=== PATIENT | male | born 1960 | race Caucasian/White ===

== ENCOUNTER 2019-12-15 17:24 | Inpatient (IN) ==
[~2019-12-15] VITALS: Ht 180.3 cm; Wt 107.1 kg
[2019-12-15 17:40] VITALS: BP 157/77
--- NOTE | 2019-12-15 17:55 | ER.PDOC ---
General Chief Complaint: Requesting Medical Care Stated Complaint: RIGHT FOOT INJURY Time seen by MD: 17:48 Source: patient Exam Limitations: no limitations History of Present Illness Initial Comments Patient states he stepped on a nail 2 days ago and didn't know it was there until last night (he has diabetic neuropathy) when he found it in his shoe. Today the right great toe is black and painless with erythema/warmth spreading up foot to lower leg. Onset: other (2 days) Where: home Severity: severe Context: other (stepped on nail 2 days ago) Modifying Factors: nothing Allergies: Coded Allergies: No Known Allergies (Unverified , 12/15/19) Home Meds Reported Medications Metformin Hcl (METFORMIN HCL) 1,000 Mg Tablet, 1 TAB PO BID, #60 TAB 5 Refills 12/15/19 Past Medical History Medical History: diabetes (no medication x 2 weeks d/t financial constraints) Surgical History: other (ortho left foot) Family History Significant Family History: no pertinent family hx Social History Smoking: cigarettes Alcohol Use: none Drug Use: none Review of Systems Constitutional: no symptoms reported EENTM: no symptoms reported Respiratory: no symptoms reported Cardiovascular: no symptoms reported Gastrointestinal: no symptoms reported Genitourinary: no symptoms reported Musculoskeletal: see HPI Skin: see HPI Psychiatric/Neurological: no symptoms reported All Other Systems: Reviewed and Negative Physical Exam General Appearance: Alert, No Apparent Distress Foot: see diagram, ecchymosis (right great toe) 1 - toe is black with necrotic lesion on base of toe and bullae on dorsal surface Ankle: nml inspection, non-tender Gait: limited by pain, antalgic gait Neuro: motor nml, decreased fine touch Vascular: skin cool (right great toe) Leg/Knee/Thigh: uninjured above ankle Skin: warm/dry (with erythema to right foot), cyanotic (right great toe) Head/ENT: nml inspection, pharynx nml Neck/Back: nml inspection, non-tender Resp/CVS: no resp distress, lungs clear, heart sounds nml, reg. rate & rhythm Abdomen: non-tender, no organomegaly Results/Orders Results/Orders Orders - LORENZA LOPEZ DO Cbc With Auto Diff (12/15/19 18:00) Comprehensive Metabolic Panel (12/15/19 18:00) Ct Rt Lower Extremity Wo (12/15/19 18:00) Ceftriaxone Sodium (Rocephin) (12/15/19 18:00) 0.9 % Sodium Chloride (Ns 100ml) (12/15/19 18:08) Ceftriaxone Sodium (Rocephin) (12/15/19 18:08) Clindamycin Phosphate/D5w (Cleocin 600 M (12/15/19 22:00) Penicillin G Potassium (Penicillin) (12/16/19 00:00) Vital Signs Date Time Temp Pulse Resp B/P (MAP) Pulse Ox O2 Delivery O2 Flow Rate FiO2 12/15/19 18:48 98.6 85 18 167/83 (111) 95 Room Air 12/15/19 17:57 98.6 86 18 157/77 (103) 99 Room Air 12/15/19 17:40 98.6 87 18 99 12/15/19 17:40 98.6 86 18 Administered Medications Medications (Trade) Dose Ordered Sig/Kandy Route PRN Reason Start Time Stop Time Status Last Admin Dose Admin Ceftriaxone Sodium 1000 mg/ Sodium Chloride 100 ml @ 100 mls/hr STAT STAT IV 12/15/19 18:00 12/15/19 18:59 UNV 12/15/19 18:41 100 MLS/HR Laboratory Tests Test 12/15/19 18:11 White Blood Count 14.6 10^3/uL (4.5-11.0) H Red Blood Count 5.31 10^6/uL (4.50-5.90) Hemoglobin 15.5 g/dL (13.9-16.3) Hematocrit 44.2 % (37.0-53.0) Mean Corpuscular Volume 83.2 fL (78-100) Mean Corpuscular Hemoglobin 29.2 pg (26-34) Mean Corpuscular Hemoglobin Concent 35.1 g/dL (33-36.5) Red Cell Distribution Width 13.0 % (11.5-14.5) Platelet Count 260 10^3/uL (150-400) Mean Platelet Volume 9.5 fL (7.8-11.0) Neutrophils (%) (Auto) 80.7 % (41.0-85.0) Lymphocytes (%) (Auto) 10.9 % (24.0-44.0) L Monocytes (%) (Auto) 6.4 % (5.0-12.0) Neutrophils # (Auto) 11.8 10^3/uL (1.8-7.7) H Lymphocytes # (Auto) 1.60 10^3/uL1 (1.0-4.8) Monocytes # (Auto) 0.9 10^3/uL (0.3-0.8) H Absolute Immature Granulocyte (auto 0.23 10^3 u/L (0-2) Absolute Eosinophils (auto) 0.1 10^3/uL (0.0-0.2) Immature Granulocytes % 1.60 % (0.00-0.50) H Eosinophils % 0.3 % (0.0-5.0) Basophils % 0.1 % (0.0-0.2) Basophils # 0.0 10^3/uL (0.0-0.1) Sodium Level 136 mmol/L (132-145) Potassium Level 4.1 mmol/L (3.6-5.2) Chloride Level 101.0 mmol/L (96-109) Carbon Dioxide Level 26.8 mmol/L (20.0-32) Anion Gap 12.3 Blood Urea Nitrogen 18 mg/dL (7-18) Creatinine 0.90 mg/dL (0.59-1.40) Estimated GFR () 104.2 (>/=60) Est GFR (CKD-EPI)(Non-Afr Citizen Of [place]) 86.1 (>/=60) BUN/Creatinine Ratio 20.0 Glucose Level 332 mg/dL (70-110) H Calcium Level 9.1 mg/dL (8.4-10.5) Total Bilirubin 0.5 mg/dL (0.2-1.0) Aspartate Amino Transferase (AST) 13 U/L (0-35) Alanine Aminotransferase (ALT) 21 U/L (12-78) Alkaline Phosphatase 91 U/L (50-136) Total Protein 6.9 g/dL (6.4-8.2) Albumin 2.8 g/dL (3.4-5.0) L Globulin 4.1 Albumin/Globulin Ratio 0.682 Progress Progress rocephin administered on arrival; clinda + pen G ordered when CT report showed gas gangreen EKG/XRAY/CT/US CT Comments: gas gangreen R grt toe with osteo/septic arthritis Consult/PCP Time Consult/PCP Called: 19:17 Consult/PCP: Dr. Curry Reason/Comments: will admit ER DEPART Departure Time of Disposition: 19:18 Disposition: 09 ADMITTED INPATIENT Impression: Primary Impression: Gas gangrene of foot Condition: Stable Referrals: JI WALKER (PCP) PRIMARY CARE PROVIDER Duration or Time Spent with Pa: 30 min LORENZA LOPEZ DO Dec 15, 2019 17:55
[2019-12-15 17:57] VITALS: BP 157/77
[2019-12-15] MEDS ORDERED: ROCEPHIN 1,000 MG in NS 100ML 100 ML IV STA (18:00)
[2019-12-15] MEDS ORDERED: ROCEPHIN ONE (18:08)
[2019-12-15] MEDS ORDERED: NS 100ML 100 ML IV ONE (18:08)
[2019-12-15 18:17] LABS: BASOPHIL % 0.1 % (0.0-0.2); EOSINOPHIL # 0.1 10^3/uL (0.0-0.2); EOSINOPHIL % 0.3 % (0.0-5.0); LYMPHOCYTES % 10.9 % (24.0-44.0); MEAN CORP HGB 29.2 pg (26-34); MONOCYTES # 0.9 10^3/uL (0.3-0.8); MONOCYTES % 6.4 % (5.0-12.0); NEUTROPHIL # 11.8 10^3/uL (1.8-7.7); NEUTROPHILS % 80.7 % (41.0-85.0); PLATELET COUNT 260 10^3/uL (150-400)
[2019-12-15 18:34] LABS: CALCIUM 9.1 mg/dL (8.4-10.5); CARBON DIOXIDE 26.8 mmol/L (20.0-32)
[2019-12-15 18:48] VITALS: BP 167/83
--- NOTE | 2019-12-15 18:51 | DIREP ---
PROCEDURE:CT LOWER EXTREMITY-RT W/O COMPARISON:None. INDICATIONS:osteomyelitis R great toe vs gangreen TECHNIQUE:Axial sections through the right foot and ankle were performed with sagittal and coronal reconstructions from source images. No contrast was administered. FINDINGS: BONES:Osseous erosive changes of the base of the 1st proximal phalanx compatible with acute osteomyelitis.. JOINTS:Background osteoarthritis of the metatarsophalangeal, interphalangeal, midfoot, and tibiotalar joints. Degenerative changes most pronounced about the talonavicular interval, calcaneal cuboid joint, and the 1st metatarsophalangeal joint. SOFT TISSUES:Significant soft tissue swelling and subcutaneous emphysema surrounding the 1st interphalangeal joint. OTHER:Negative. CONCLUSION:Findings suggestive of septic arthritis and osteomyelitis of the 1st interphalangeal joint and base of the 1st proximal phalanx respectively. Surrounding soft tissue gas compatible with gas gangrene. Dictated by: Matthieu Hinkle DO on 12/15/2019 at 06:48 PM
[2019-12-15] MEDS ORDERED: METF10007 PO (18:53)
[2019-12-15 19:30] VITALS: BP 157/81
--- NOTE | 2019-12-15 19:33 | NUR ---
REPORT TO [facility] REPORT TO CHEY SMITH
[2019-12-15 19:40] VITALS: BP 169/87
--- NOTE | 2019-12-15 19:40 | NUR ---
Received pt from the ED via wheel chair. Vital signs stable. Admission completed. Administered medications as ordered. Pt's left great to black and swollen,left foot is reddened with edema. Reddened perimeter marked to monitor redness. Pt denies any pain or discomforts at this time.Will cont to monitor and meet pt's needs.
[2019-12-15] MEDS ORDERED: CLEOCIN 600 MG-D5W-GALAXY 50 ML IV SCH (22:00)
[2019-12-15] MEDS ORDERED: NS 250ML 250 ML IV ONE (22:37)
[2019-12-16] VITALS: BP 151/78
[2019-12-16] MEDS ORDERED: PENICILLIN IV SCH ×2 (01:30)
[2019-12-16] MEDS ORDERED: CLEOCIN 600 MG-D5W-GALAXY 50 ML IV SCH (03:30)
[2019-12-16 04:00] VITALS: BP 149/74
[2019-12-16] MEDS ORDERED: ROCEPHIN ONE ×2 (04:43→06:06)
[2019-12-16] MEDS ORDERED: NS 100ML 100 ML IV ONE (04:44)
[2019-12-16 05:17] LABS: BASOPHIL % 0.2 % (0.0-0.2); EOSINOPHIL # 0.1 10^3/uL (0.0-0.2); EOSINOPHIL % 0.8 % (0.0-5.0); LYMPHOCYTES # 1.76 10^3/uL1 (1.0-4.8); LYMPHOCYTES % 12.7 % (24.0-44.0); MEAN CORP HGB 29.2 pg (26-34); MONOCYTES % 7.1 % (5.0-12.0); NEUTROPHIL # 10.8 10^3/uL (1.8-7.7); NEUTROPHILS % 77.5 % (41.0-85.0); PLATELET COUNT 249 10^3/uL (150-400); RED CELL DISTRIBUTION WIDTH 13.1 % (11.5-14.5)
[2019-12-16 05:39] LABS: CALCIUM 8.9 mg/dL (8.4-10.5); CARBON DIOXIDE 27.3 mmol/L (20.0-32)
[2019-12-16] MEDS ORDERED: ROCEPHIN 2,000 MG in NS 100ML 100 ML IV SCH (07:00)
[2019-12-16 09:05] VITALS: BP 153/79
--- NOTE | 2019-12-16 09:54 | CNH ---
DATE OF CONSULTATION: 12/16/2019 HISTORY OF PRESENT ILLNESS: The patient is a 59-year-old diabetic who reportedly stepped on a nail 2-3 days ago, but did not realize it until about 36 hours ago when he noticed an area of darkness on the plantar aspect of his right great toe. He states that over the next 24 hours, he developed marked discoloration of the entire toe and went to see his primary care physician in [place] yesterday, Dr. Vinnie De Jesus, who referred the patient to [facility]. The patient denies any fever or chills. He has diabetic neuropathy and so he did not realize that there was a nail in his shoe. The patient was seen in the Emergency Room last night by Dr. Raza. His exam showed that he had gangrene about the right great toe. He was afebrile. His vital signs were stable. The CT scan shows that he has what appeared to be some septic arthritis in the IP joint of his great toe as well as soft tissue swelling. EXAMINATION: Today shows that the patient has full thickness necrosis of the right great toe extending from the base of the proximal phalanx on both the dorsal and the plantar aspect. He also has some erythema about the dorsal and medial aspect of his foot. The patient has decreased sensation about the foot. There is no active drainage. Again, the patient is afebrile. His white count this morning is 13.5. His hemoglobin is stable. BUN and creatinine are normal. ASSESSMENT: Gangrene of the right great toe. PLAN: The patient will be stabilized medically by the hospitalist. He will be taken to the operating room for amputation of the right great toe. The risks and hazards of the procedure were discussed with the patient. Currently, he is on vancomycin and clindamycin as per the hospitalist. Albin Johnson MD DR: LUX/shagufta JOB# [id number]
[2019-12-16] MEDS: NS IV SCH ×2 (10:40→21:27)
[2019-12-16] MEDS: VANCOMYCIN IV SCH ×2 (10:40→21:27)
[2019-12-16] MEDS ORDERED: HUMULIN R SQ ONE (12:00)
--- NOTE | 2019-12-16 12:05 | PCM.HP ---
History of Present Illness Reason for Visit: (1) Osteomyelitis of great toe of right foot ICD Code: M86.9 - Osteomyelitis, unspecified SNOMED: 244287463, 190148595, [id number] Was this Problem Present on Ad: Yes-DX present @time ofIP (2) Septic arthritis of interphalangeal joint of toe of right foot ICD Code: M00.9 - Pyogenic arthritis, unspecified SNOMED: 582374584, [id number] Was this Problem Present on Ad: Yes-DX present @time ofIP (3) Gas gangrene of foot ICD Code: A48.0 - Gas gangrene SNOMED: 470975009 Was this Problem Present on Ad: Yes-DX present @time ofIP (4) Hyperglycemia due to type 2 diabetes mellitus ICD Code: E11.65 - Type 2 diabetes mellitus with hyperglycemia SNOMED: 95532654, [id number] Was this Problem Present on Ad: Yes-DX present @time ofIP (5) Peripheral neuropathy ICD Code: G62.9 - Polyneuropathy, unspecified SNOMED: 845245965 Was this Problem Present on Ad: Yes-DX present @time ofIP (6) Cellulitis of right lower extremity ICD Code: L03.115 - Cellulitis of right lower limb SNOMED: 703195283 Hx of Present Illness The patient is a 59-yo M with medical hx of DM2 and peripheral neuropathy who reportedly stepped on a nail 3 days ago, but did not realize it until about yesterday before coming to the ED, he noticed dark discoloration of his right great toe but denied any feeling of pain. He went to see his primary care physi dewey in [place] yesterday, Dr. Vinnie De Jesus, who referred the patient to the [facility]. The patient denies any fever or chills. After patient was seen in the Emergency Room last night by Dr. Raza CT scan Reported findings of septic arthritis , Osteomyelitis of the first IP joint and base of the first proximal phalanx with gas gangrene. Patient was given IV antibiotic broad-spectrum of the emergency department and was therefore plan for admission for further evaluation and management. WBC at the emergency department reported 14,000 with elevated blood sugar likely uncontrolled diabetes mellitus type 2. Dr. Johnson was consulted who agreed to come and see patient. Travel History Is pt experiencing any Ebola s: No Review of Systems Constitutional: Chills; No: Fever, Sweats, Weakness, Malaise Eyes: No: Pain, Vision change, Conjunctivae inflammation, Eyelid inflammation, Redness ENT: No: Ear pain, Ear discharge, Nose pain, Nose discharge, Nose congestion, Mouth pain, Mouth swelling, Throat pain, Throat swelling Respiratory: No: Cough, Dry, Shortness of breath, SOB with excertion, Wheezing, Hemoptysis, Pleuritic Pain, Sputum, Wheezing Cardiovascular: No: Chest Pain, Palpitations, Orthopnea, Paroxysmal Noc. Dyspnea, Edema, Lt Headedness Gastrointestinal: No: Nausea, Vomiting, Abdominal Pain, Diarrhea, Constipation, Melena, Hematochezia Genitourinary: No Dysuria, No Frequency, No Incontinence, No Hematuria, No Retention Musculoskeletal: foot pain; No: neck pain, shoulder pain, arm pain, back pain, hand pain, leg pain Skin: No: Rash, Lesions, Jaundice, Bruising Neurological: Numbness; No: Weakness, Incoordination, Change in speech, Confusion, Seizures Allergies: Coded Allergies: No Known Allergies (Unverified , 12/15/19) Scheduled Metformin Hcl (Metformin Hcl), 1 TAB PO BID, (Reported) VTE VTE Risk Total Score: 2 VTE Risk Score VTE Risk: Score 0-1 = Low Risk (Aggressive mobilization; early ambulation; no VTE prophylaxis required) Score 2: Moderate Risk (Intermittent/Pneumatic Compression Device OR Lovenox/Heparin/Coumadin) Score 3-4: High Risk (Intermittent/Pneumatic Compression Device AND Lovenox/Heparin/Coumadin) Score > or =5: Highest Risk (Intermittent/Pneumatic Compression Device AND Lovenox/Heparin/Coumadin) VTE VTE Present on Admission: No Currently receiving anticoagul: No VTE Risk Total Score: 2 Exam Vital Signs Vital Signs Date Time Temp Pulse Resp B/P (MAP) Pulse Ox O2 Delivery O2 Flow Rate FiO2 12/16/19 09:05 98.3 79 18 153/79 (103) 94 Room Air General Appearance: Alert, Oriented X3, Cooperative, No acute distress HEENT: Atraumatic, PERRLA, EOMI, Mucous membr. moist/pink Respiratory: Clear to auscultation, Normal air movement Cardiovascular: Regular rate, Normal S1, Normal S2, No murmurs Abdominal: Normal bowel sounds, Soft, No tenderness, No hepatospenomegaly, No masses Extremities: No clubbing, No edema, Normal pulses, No tenderness/swelling, Oth er (right great toe gangrene with cellulitis of the lower extremity, redness and warmth.) Skin: No rash, No breakdown, No lesions, Rash, Breakdown Neuro: Normal gait, Normal speech, Strength at 5/5 X4 ext, Normal tone, Cranial nerves 3-12 NL, Reflexes 2+ Psych/Mental Status: Mental status NL, Mood NL Assessment/Plan Assessment/Plan Problems: (1) Osteomyelitis of great toe of right foot Status: Acute Assessment & Plan: Evident on CT scan Continue with IV antibiotic broad-spectrum including clindamycin and vancomycin IV Dr. Johnson Ortho consulted plan to take patient to the OR for amputation. ICD Code: M86.9 - Osteomyelitis, unspecified SNOMED: 300684394, 456405637, [id number] (2) Septic arthritis of interphalangeal joint of toe of right foot Status: Acute Assessment & Plan: Evident on CT scan. Pending blood culturesContinue with IV antibiotic broad-spectrum including clindamycin and vancomycin. ICD Code: M00.9 - Pyogenic arthritis, unspecified SNOMED: 984509943, [id number] (3) Gas gangrene of foot Status: Acute Assessment & Plan: Started on broad-spectrum IV antibiotic including clindamycin and vancomycin. Blood cultures pending. Dr. Johnson consulted.Plan to take patient to the OR today. ICD Code: A48.0 - Gas gangrene SNOMED: 001005970 (4) Cellulitis of right lower extremity Status: Acute Assessment & Plan: Started on broad-spectrum IV antibiotic including clindamycin and vancomycin. Blood cultures pending. ICD Code: L03.115 - Cellulitis of right lower limb SNOMED: 747955150 (5) Hyperglycemia due to type 2 diabetes mellitus Status: Acute Assessment & Plan: Because they wanted to look at the abscess site will obtain A1c and evaluate for severity. Continue with insulin therapy including long-acting glargine 28 units at night and sliding scale. Diabetic diet.Optimize blood sugar control. ICD Code: E11.65 - Type 2 diabetes mellitus with hyperglycemia SNOMED: 00063785, [id number] (6) Peripheral neuropathy Status: Chronic ICD Code: G62.9 - Polyneuropathy, unspecified SNOMED: 884977103 Patient History: Patient reports no known family medical history. AD WICK MD Dec 16, 2019 12:05
[2019-12-16 12:57] VITALS: BP 153/78
--- NOTE | 2019-12-16 15:00 | NUR ---
DISCHARGE PLAN PATIENT LIVES AT HOME ALONE IN [place], [place]. HE IS VERY IND OF ADLS. HIS PCP IS JI WALKER MD IN [place] [phone]. CM CONTACTED DR WALKER'S OFFICE TO SCHEDULE A F/U FOR Friday12/20/19 @ 2:30 PM. DISCHARGE PLAN IS FOR PATIENT TO D/C BACK HOME ALONE TO ROUTINE CARE. CM WILL CONTINUE TO MONITOR NEEDS OF PT.
[2019-12-16 16:16] VITALS: BP 160/83
[2019-12-16 20:00] VITALS: BP 157/79
[2019-12-16] MEDS: LANTUS SQ SCH (21:27)
[2019-12-17] VITALS (10 sets, daily range): BP systolic 118–163; BP diastolic 64–95
[2019-12-17] MEDS: VANCOMYCIN IV SCH ×2 (10:06→20:49)
[2019-12-17] MEDS: NS IV SCH ×2 (10:06→20:49)
--- NOTE | 2019-12-17 11:15 | NUR ---
PT LEFT FLOOR TO OPERATING ROOM AT THIS TIME.
[2019-12-17] MEDS ORDERED: XYLOCAINE 2%-EPI 1:100,000 ONE (13:08)
[2019-12-17] MEDS ORDERED: SODIUM CHLORIDE IRR BOTTLE IR ONE ×2 (13:08→14:20)
[2019-12-17] MEDS ORDERED: DIPRIVAN IV ONE ×2 (13:42→14:30)
[2019-12-17] MEDS ORDERED: KETAMINE HCL-Non-Preferred ONE (13:42)
[2019-12-17] MEDS ORDERED: CEPACOL SORE THROAT LOZENGE MM PRN (15:00)
[2019-12-17] MEDS ORDERED: ULTRAM PO PRN (15:00)
[2019-12-17] MEDS ORDERED: MORPHINE SULFATE IV PRN (15:00)
--- NOTE | 2019-12-17 15:15 | OPH ---
DATE OF SURGERY: 12/17/2019 PREOPERATIVE DIAGNOSIS: Gangrene of the right great toe. POSTOPERATIVE DIAGNOSIS: Gangrene of right great toe. OPERATIVE PROCEDURE: Amputation of the right great toe through the MTP joint. SURGEON: Albin Johnson MD ANESTHESIA: General. TOURNIQUET TIME: 21 minutes at 300 mmHg. DRAINS: None. BLOOD LOSS: 50 mL. INDICATIONS: The patient is a 59-year-old diabetic, who noticed that his great toe turned black about 2 days ago after he stepped on a nail. He was admitted to the [facility] on 12/15/2019. He was cleared for surgery and taken to the operating room today for amputation of the right great toe. The patient had stepped on a nail several days ago and began having swelling, redness and blackish discoloration of the great toe. He had total gangrenous changes of the great toe extending from the base of the proximal phalanx dorsally involving the entire toe to the volar aspect of the great toe at the MTP joint. DESCRIPTION OF PROCEDURE: The patient was placed on the operating table in the supine position. A general anesthetic was induced. The patient had the tourniquet placed around the right calf region. Right lower extremity was then sterilely prepped and draped. The patient then had the incision taken around the base of the proximal phalanx of the toe in a hockey stick fashion with the base of the incision medially. Incision was taken through the skin and the subcutaneous tissue, full-thickness down to the joint. Aerobic and anaerobic cultures were taken as well as a Gram stain. The patient then had the capsule opened at the MTP joint and the toe was removed. The wounds were then copiously irrigated. The sesamoids were resected as were the flexor and extensor tendons. The wound edges were clean and showed what appeared to be healthy tissue. The patient then had the articular cartilage about the distal end of the first metatarsal resected using a rongeur. The patient then had the distal end of the first metatarsal smoothed with a rasp. The wounds were then copiously irrigated and then closed with interrupted #2 Prolene suture in an interrupted manner. A compressive dressing was applied. He was sent to recovery in stable condition. The tourniquet was released and bleeding was controlled with cautery prior to the wound closure. Albin Johnson MD DR: LUX/shagufta JOB# [id number]
--- NOTE | 2019-12-17 15:48 | NUR ---
PATIENT BACK ON UNIT AT THIS TIME FROM SURGICAL PROCEDURE.
--- NOTE | 2019-12-17 16:19 | NUR ---
PATIENT IS REPORTING UNPLEASANT FEELINGS OF BEING HOT AND SWEATY. HIS BP IS 179/88. P100. DENIES PAIN. GLUCOSE CHECKED AT THIS TIME WAS 212. CONTACTED MD FOR ORDERS. CALL LIGHT IN REACH, BED IS LOW AND LOCKED. WILL CONTINUE TO MONITOR PATIENT.
--- NOTE | 2019-12-17 16:25 | NUR ---
20MG IV LABETALOL ADMINISTERED AT THIS TIME FOR BP OF 190/88 P.100. CALL LIGHT IN REACH, BED IS LOW AND LOCKED. WILL CONTINUE TO MONITOR.
[2019-12-17] MEDS ORDERED: TRANDATE IV PRN (16:30)
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
[2019-12-17] MEDS: ULTRAM PO PRN (19:42)
[2019-12-17 20:35] LABS: RED CELL DISTRIBUTION WIDTH 12.8 % (11.5-14.5)
[2019-12-17] MEDS: LANTUS SQ SCH (20:52)
[2019-12-17] MEDS ORDERED: NS 250ML 250 ML IV ONE (20:53)
--- NOTE | 2019-12-17 23:50 | NUR ---
placed patient on 02 at 2 l n/c patient while sleeping stats fall 88 % to 89 % placed on 02 stats increased to 93 94 % explain to patient will need to wear at sleep until effects of medication from surgery wears off , voiced understanding of
[2019-12-18 05:33] LABS: MEAN CORP HGB 29.9 pg (26-34); RED CELL DISTRIBUTION WIDTH 12.9 % (11.5-14.5)
[2019-12-18 05:51] VITALS: BP 166/91
--- NOTE | 2019-12-18 07:05 | NUR ---
REPORT RECEIVED REPORT FROM Gurinder ANDERSON RN. ASSUMED CARE AT THIS TIME. PATIENT RESTING IN BED. NO SIGNS OF DISTRESS. PATIENT DENIES NEEDS AT THIS TIME
[2019-12-18 07:33] LABS: CALCIUM 8.9 mg/dL (8.4-10.5); CARBON DIOXIDE 28.6 mmol/L (20.0-32)
[2019-12-18 09:45] VITALS: BP 153/80
[2019-12-18] MEDS: COLACE PO SCH (10:16)
[2019-12-18] MEDS: PEPCID PO SCH (10:16)
[2019-12-18] MEDS: NS IV SCH ×2 (10:17→22:23)
[2019-12-18] MEDS: VANCOMYCIN IV SCH ×2 (10:17→22:23)
[2019-12-18] MEDS ORDERED: DEXTROSE 50%-WATER SYRINGE IV PRN (12:30)
[2019-12-18] MEDS: HUMULIN R SQ SCH ×3 (12:34→21:39)
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
[2019-12-18 13:17] VITALS: BP 150/83
[2019-12-18] MEDS ORDERED: NS 100ML 100 ML IV ONE ×2 (14:12→23:06)
[2019-12-18] MEDS: GLUCOPHAGE PO SCH ×2 (14:22→21:40)
[2019-12-18] MEDS: GENTAMICIN SULFATE IV SCH ×2 (14:22→22:00)
--- NOTE | 2019-12-18 16:03 | PRM.PN ---
Subjective Subjective Date: Dec 18, 2019 Time: 09:00 Subjective Patient is seen and examine this afternoon following right great toe surgery POD #1 No new complaints Patient History: Patient reports no known family medical history. VTE VTE Risk Total Score: 2 VTE Risk Score VTE Risk: Score 0-1 = Low Risk (Aggressive mobilization; early ambulation; no VTE prophylaxis required) Score 2: Moderate Risk (Intermittent/Pneumatic Compression Device OR Lovenox/Heparin/Coumadin) Score 3-4: High Risk (Intermittent/Pneumatic Compression Device AND Lovenox/Heparin/Coumadin) Score > or =5: Highest Risk (Intermittent/Pneumatic Compression Device AND Lovenox/Heparin/Coumadin) Review of Systems Constitutional: Chills; No: Fever, Sweats, Weakness, Malaise Eyes: No: Pain, Vision change, Conjunctivae inflammation, Eyelid inflammation, Redness ENT: No: Ear pain, Ear discharge, Nose pain, Nose discharge, Nose congestion, Mouth pain, Mouth swelling, Throat pain, Throat swelling Respiratory: No: Cough, Dry, Shortness of breath, SOB with excertion, Wheezing, Hemoptysis, Pleuritic Pain, Sputum, Wheezing Cardiovascular: No: Chest Pain, Palpitations, Orthopnea, Paroxysmal Noc. Dyspnea, Edema, Lt Headedness Gastrointestinal: No: Nausea, Vomiting, Abdominal Pain, Diarrhea, Constipation, Melena, Hematochezia Genitourinary: No Dysuria, No Frequency, No Incontinence, No Hematuria, No Retention Musculoskeletal: foot pain; No: neck pain, shoulder pain, arm pain, back pain, hand pain, leg pain Skin: No: Rash, Lesions, Jaundice, Bruising Neurological: Numbness; No: Weakness, Incoordination, Change in speech, Confusion, Seizures Allergies: Coded Allergies: No Known Allergies (Unverified , 12/15/19) Scheduled Metformin Hcl (Metformin Hcl), 1 TAB PO BID, (Reported) Objective Vitals and I/O Vital Sign - Last 24 Hours 12/17/19 12/17/19 12/17/19 12/18/19 18:31 20:00 21:00 05:51 Temp 98.0 Pulse 75 81 Resp 16 18 B/P (MAP) 166/91 (116) Pulse Ox 95 96 O2 Delivery Room Air Room Air Nasal Cannula O2 Flow Rate 2.00 2.00 FiO2 28 1012/18/19 12/18/19 12/18/19 08:10 09:15 09:45 13:17 Temp 97.9 98.4 Pulse 81 79 76 Resp 18 18 18 B/P (MAP) 153/80 (104) 150/83 (105) Pulse Ox 96 94 96 O2 Delivery Nasal Cannula Room Air Room Air Room Air Intake and Output 12/18/19 07:00 Intake Total 1725 ml Output Total 1550 ml Balance 175 ml General: Alert, Oriented X3, Cooperative, No acute distress HEENT: Atraumatic, PERRLA, EOMI, Mucous membr. 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.) Neuro: Normal gait, Normal speech, Strength at 5/5 X4 ext, Normal tone, Cranial nerves 3-12 NL, Reflexes 2+ Psych/Mental Status: Mental status NL, Mood NL All Results(Lab/Rad) Laboratory Tests Test 12/16/19 17:23 12/16/19 21:16 12/17/19 06:20 12/17/19 15:22 Bedside Glucose 318 325 287 236 Test 12/17/19 16:16 Bedside Glucose 212 Current Medications Medications (Trade) Dose Ordered Sig/Kandy Route PRN Reason Start Time Stop Time Status Last Admin Dose Admin Ceftriaxone Sodium 1000 mg/ Sodium Chloride 100 ml @ 100 mls/hr STAT STAT IV 12/15/19 18:00 12/15/19 23:17 DC 12/15/19 18:41 Sodium Chloride 100 ml @ ud STK-MED ONCE IV 12/15/19 18:08 12/15/19 18:10 DC Ceftriaxone Sodium (Rocephin) 1,000 mg STK-MED ONCE .ROUTE 12/15/19 18:08 12/15/19 18:10 DC Clindamycin Phosphate 50 ml @ 50 mls/hr Q8 IV 12/15/19 22:00 12/16/19 00:56 DC 12/15/19 22:40 Penicillin G Potassium (Penicillin) 6 mu Q6HR IV 12/16/19 00:00 12/16/19 00:56 DC Clindamycin Phosphate 50 ml @ 50 mls/hr Q8 IV 12/16/19 03:30 12/15/19 23:18 DC Penicillin G Potassium (Penicillin) 6 mu Q6H IV 12/16/19 01:30 12/15/19 23:22 DC Sodium Chloride 250 ml @ ud STK-MED ONCE IV 12/15/19 22:37 12/15/19 22:39 DC Ceftriaxone Sodium 2000 mg/ Sodium Chloride 100 ml @ 100 mls/hr Q12HR IV 12/16/19 07:00 12/16/19 08:32 DC 12/16/19 06:14 Ceftriaxone Sodium (Rocephin) 1,000 mg STK-MED ONCE .ROUTE 12/16/19 04:43 12/16/19 04:46 DC Sodium Chloride 100 ml @ ud STK-MED ONCE IV 12/16/19 04:44 12/16/19 04:46 DC Ceftriaxone Sodium (Rocephin) 1,000 mg STK-MED ONCE .ROUTE 12/16/19 06:06 12/16/19 06:09 DC Vancomycin HCl 1600 mg/Sodium Chloride 300 ml @ 175 mls/hr Q12H IV 12/16/19 09:30 01/15/20 09:29 12/17/19 10:06 Insulin Glargine (Lantus) 20 unit HS SQ 12/16/19 21:00 01/15/20 20:59 12/16/19 21:27 Insulin Human Regular (Humulin R) 2 unit OT ONCE SQ 12/16/19 12:00 12/16/19 12:48 DC 12/16/19 12:46 Sodium Chloride (Sodium Chloride Irr Bottle) 1,000 ml STK-MED ONCE IR 12/17/19 13:08 12/17/19 13:09 DC Lidocaine/ Epinephrine (Xylocaine 2%-Epi 1:100,000) 20 ml STK-MED ONCE .ROUTE 12/17/19 13:08 12/17/19 13:10 DC Ketamine HCl (KETAMINE TMP-Bbc-Knokjjbxr) 500 mg STK-MED ONCE .ROUTE 12/17/19 13:42 12/17/19 13:44 DC Propofol (Diprivan) 200 mg STK-MED ONCE IV 12/17/19 13:42 12/17/19 13:44 DC Sodium Chloride (Sodium Chloride Irr Bottle) 1,000 ml STK-MED ONCE IR 12/17/19 14:20 12/17/19 14:23 DC Propofol (Diprivan) 200 mg STK-MED ONCE IV 12/17/19 14:30 12/17/19 14:32 DC Tramadol HCl (Ultram) 50 mg Q6H PRN PO PAIN 1 - 3 12/17/19 15:00 01/16/20 14:59 Tramadol HCl (Ultram) 100 mg Q6H PRN PO PAIN 4 - 6 12/17/19 15:00 01/16/20 14:59 Docusate Sodium (Colace) 100 mg DAILY PO 12/18/19 09:00 01/17/20 08:59 Throat Lozenges (Cepacol Sore Throat Lozenge) 1 each PRN PRN MM SORE THROAT 12/17/19 15:00 01/16/20 14:59 Famotidine (Pepcid) 20 mg DAILY PO 12/18/19 09:00 01/17/20 08:59 Morphine Sulfate (Morphine Sulfate) 2 mg Q4H PRN IV PAIN 4 - 6 12/17/19 15:00 01/16/20 14:59 Labetalol HCl (Trandate) 20 mg Q4H PRN IV HYPERTENSION 12/17/19 16:30 01/16/20 16:29 12/17/19 16:26 Course Sepsis Screening Results: Posi: NEGATIVE Sepsis Qualifier/Stage: NO DEFINITE RISK Duration or Total Time Spent w: 30 min Vitals & review Data Vital Sign - Last 24 Hours 12/16/19 12/16/19 12/17/19 12/17/19 20:00 20:40 00:00 04:29 Temp 100.1 97.7 97.9 Pulse 77 76 76 Resp 20 20 18 B/P (MAP) 157/79 (105) 146/66 (92) 156/86 (109) Pulse Ox 93 93 92 O2 Delivery Room Air Room Air Room Air Room Air 12/17/19 12/17/19 12/17/19 12/17/19 08:01 08:55 14:55 14:55 Temp 97.8 97.0 Pulse 71 75 Resp 18 16 B/P (MAP) 161/81 (107) 118/64 (82) Pulse Ox 94 100 O2 Delivery Room Air Room Air Non-Rebreather O2 Flow Rate 15 15 12/17/19 12/17/19 12/17/19 12/17/19 15:00 15:05 15:10 15:15 Temp 98.1 Pulse 75 74 74 76 Resp 16 16 16 16 B/P (MAP) 138/80 (99) 145/80 (101) 163/86 (111) 159/85 (109) Pulse Ox 100 100 100 98 O2 Delivery Non-Rebreather Non-Rebreather Non-Rebreather Room Air O2 Flow Rate 15 15 15 12/17/19 12/17/19 15:25 15:35 Temp 98.0 Pulse 77 75 Resp 16 16 B/P (MAP) 156/95 (115) 159/88 (111) Pulse Ox 95 95 O2 Delivery Room Air Room Air Intake and Output 12/17/19 07:00 Intake Total 1232 ml Balance 1232 ml Laboratory Tests Test 12/15/19 18:11 12/15/19 19:52 12/16/19 05:00 12/16/19 10:54 White Blood Count 14.6 10^3/uL 13.9 10^3/uL Red Blood Count 5.31 10^6/uL 5.20 10^6/uL Hemoglobin 15.5 g/dL 15.2 g/dL Hematocrit 44.2 % 43.7 % Mean Corpuscular Volume 83.2 fL 84.0 fL Mean Corpuscular Hemoglobin 29.2 pg 29.2 pg Mean Corpuscular Hemoglobin Concent 35.1 g/dL 34.8 g/dL Red Cell Distribution Width 13.0 % 13.1 % Platelet Count 260 10^3/uL 249 10^3/uL Mean Platelet Volume 9.5 fL 9.7 fL Neutrophils (%) (Auto) 80.7 % 77.5 % Lymphocytes (%) (Auto) 10.9 % 12.7 % Monocytes (%) (Auto) 6.4 % 7.1 % Neutrophils # (Auto) 11.8 10^3/uL 10.8 10^3/uL Lymphocytes # (Auto) 1.60 10^3/uL1 1.76 10^3/uL1 Monocytes # (Auto) 0.9 10^3/uL 1.0 10^3/uL Absolute Immature Granulocyte (auto 0.23 10^3 u/L 0.24 10^3 u/L Absolute Eosinophils (auto) 0.1 10^3/uL 0.1 10^3/uL Immature Granulocytes % 1.60 % 1.70 % Eosinophils % 0.3 % 0.8 % Basophils % 0.1 % 0.2 % Basophils # 0.0 10^3/uL 0.0 10^3/uL Sodium Level 136 mmol/L 138 mmol/L Potassium Level 4.1 mmol/L 4.2 mmol/L Chloride Level 101.0 mmol/L 102.0 mmol/L Carbon Dioxide Level 26.8 mmol/L 27.3 mmol/L Anion Gap 12.3 12.9 Blood Urea Nitrogen 18 mg/dL 14 mg/dL Creatinine 0.90 mg/dL 0.89 mg/dL Estimated GFR () 104.2 105.5 Est GFR (CKD-EPI)(Non-Afr [place]) 86.1 87.2 BUN/Creatinine Ratio 20.0 15.0 Glucose Level 332 mg/dL 334 mg/dL Calcium Level 9.1 mg/dL 8.9 mg/dL Total Bilirubin 0.5 mg/dL 0.4 mg/dL Aspartate Amino Transf (AST/SGOT) 13 U/L 12 U/L Alanine Aminotransferase (ALT/SGPT) 21 U/L 19 U/L Alkaline Phosphatase 91 U/L 89 U/L Total Protein 6.9 g/dL 6.4 g/dL Albumin 2.8 g/dL 2.7 g/dL Globulin 4.1 3.7 Albumin/Globulin Ratio 0.682 0.729 Bedside Glucose 301 322 Hemoglobin A1c 10.9 % Test 12/16/19 17:23 12/16/19 21:16 12/17/19 06:20 12/17/19 15:22 Bedside Glucose 318 325 287 236 Test 12/17/19 16:16 Bedside Glucose 212 Current Medications Medications (Trade) Dose Ordered Sig/Kandy PRN Reason Start Time Stop Time Status Last Admin Docusate Sodium (Colace) 100 mg DAILY 12/18/19 09:00 01/17/20 08:59 Famotidine (Pepcid) 20 mg DAILY 12/18/19 09:00 01/17/20 08:59 Insulin Glargine (Lantus) 20 unit HS 12/16/19 21:00 01/15/20 20:59 12/16/19 21:27 Labetalol HCl (Trandate) 20 mg Q4H PRN HYPERTENSION 12/17/19 16:30 01/16/20 16:29 12/17/19 16:26 Morphine Sulfate (Morphine Sulfate) 2 mg Q4H PRN PAIN 4 - 6 12/17/19 15:00 01/16/20 14:59 Throat Lozenges (Cepacol Sore Throat Lozenge) 1 each PRN PRN SORE THROAT 12/17/19 15:00 01/16/20 14:59 Tramadol HCl (Ultram) 50 mg Q6H PRN PAIN 1 - 3 12/17/19 15:00 01/16/20 14:59 Tramadol HCl (Ultram) 100 mg Q6H PRN PAIN 4 - 6 12/17/19 15:00 01/16/20 14:59 Vancomycin HCl 1600 mg/Sodium Chloride 300 ml @ 175 mls/hr Q12H 12/16/19 09:30 01/15/20 09:29 12/17/19 10:06 LEVEL 1 SEPSIS INFECTION CRITE: ABX Therapy LEVEL 2-SIRS (LIST ALL THAT AP: None/Not assessed Cardiovascular Evidence: Not Assessed or None Hematologic Evidence: None/Not assessed Hepatic Evidence: None/Not assessed Metabolic Evidence: None/Not assessed Neurological Evidence: None/Not assessed Respiratory Evidence: None/Not assessed Renal Evidence: None/Not assessed O2 Sat by Pulse Oximetry: 96 Oxygen Flow Rate: 2.00 Assessment/Plan Assessment/Plan Problems: (1) Peripheral neuropathy Status: Chronic ICD Code: G62.9 - Polyneuropathy, unspecified SNOMED: 001418595 (2) Cellulitis of right lower extremity Status: Acute ICD Code: L03.115 - Cellulitis of right lower limb SNOMED: 347864700 (3) Hyperglycemia due to type 2 diabetes mellitus Status: Acute ICD Code: E11.65 - Type 2 diabetes mellitus with hyperglycemia SNOMED: 76430181, 161958027574395 (4) Septic arthritis of interphalangeal joint of toe of right foot Status: Acute ICD Code: M00.9 - Pyogenic arthritis, unspecified SNOMED: 939545203, [id number] (5) Osteomyelitis of great toe of right foot Status: Acute ICD Code: M86.9 - Osteomyelitis, unspecified SNOMED: 856858130, 449899594, [id number] (6) Gas gangrene of foot Status: Acute ICD Code: A48.0 - Gas gangrene SNOMED: 604758134 Plan Pending wound culture and blood culture. Continue IV abx and anticipated for DC tomorrow with 2 week of po abx. AD WICK MD Dec 18, 2019 16:03
[2019-12-18 17:32] VITALS: BP 147/75
[2019-12-18] MEDS: ULTRAM PO PRN (20:49)
[2019-12-18] MEDS ORDERED: NS 250ML 250 ML IV ONE (21:01)
[2019-12-18] MEDS: LANTUS SQ SCH (21:40)
[2019-12-18 22:52] VITALS: BP 147/76
[2019-12-19 00:21] VITALS: BP 132/79
[2019-12-19] MEDS ORDERED: NS 100ML 100 ML IV ONE (05:22)
[2019-12-19 05:31] VITALS: BP 142/79
[2019-12-19] MEDS: GENTAMICIN SULFATE IV SCH (05:32)
[2019-12-19 08:22] LABS: MEAN CORP HGB 28.6 pg (26-34); RED CELL DISTRIBUTION WIDTH 12.9 % (11.5-14.5)
[2019-12-19] MEDS: HUMULIN R SQ SCH ×4 (08:26→21:25)
[2019-12-19 08:32] LABS: CALCIUM 8.3 mg/dL (8.4-10.5); CARBON DIOXIDE 24.5 mmol/L (20.0-32)
[2019-12-19] MEDS: COLACE PO SCH (08:34)
[2019-12-19] MEDS: PEPCID PO SCH (08:34)
[2019-12-19] MEDS: GLUCOPHAGE PO SCH ×2 (08:35→21:00)
[2019-12-19 08:45] VITALS: BP 135/78
--- NOTE | 2019-12-19 10:55 | PRM.PN ---
Subjective Subjective Date: Dec 19, 2019 Time: 08:00 Subjective Patient is seen and examine this afternoon following right great toe surgery POD #2 No new complaints Patient History: Patient reports no known family medical history. VTE VTE Risk Total Score: 2 VTE Risk Score VTE Risk: Score 0-1 = Low Risk (Aggressive mobilization; early ambulation; no VTE prophylaxis required) Score 2: Moderate Risk (Intermittent/Pneumatic Compression Device OR Lovenox/Heparin/Coumadin) Score 3-4: High Risk (Intermittent/Pneumatic Compression Device AND Lovenox/Heparin/Coumadin) Score > or =5: Highest Risk (Intermittent/Pneumatic Compression Device AND Lovenox/Heparin/Coumadin) Review of Systems Constitutional: Chills; No: Fever, Sweats, Weakness, Malaise Eyes: No: Pain, Vision change, Conjunctivae inflammation, Eyelid inflammation, Redness ENT: No: Ear pain, Ear discharge, Nose pain, Nose discharge, Nose congestion, Mouth pain, Mouth swelling, Throat pain, Throat swelling Respiratory: No: Cough, Dry, Shortness of breath, SOB with excertion, Wheezing, Hemoptysis, Pleuritic Pain, Sputum, Wheezing Cardiovascular: No: Chest Pain, Palpitations, Orthopnea, Paroxysmal Noc. Dyspnea, Edema, Lt Headedness Gastrointestinal: No: Nausea, Vomiting, Abdominal Pain, Diarrhea, Constipation, Melena, Hematochezia Genitourinary: No Dysuria, No Frequency, No Incontinence, No Hematuria, No Retention Musculoskeletal: foot pain; No: neck pain, shoulder pain, arm pain, back pain, hand pain, leg pain Skin: No: Rash, Lesions, Jaundice, Bruising Neurological: Numbness; No: Weakness, Incoordination, Change in speech, Confusion, Seizures Allergies: Coded Allergies: No Known Allergies (Unverified , 12/15/19) Scheduled Metformin Hcl (Metformin Hcl), 1 TAB PO BID, (Reported) Objective Vitals and I/O Vital Sign - Last 24 Hours 12/18/19 12/18/19 12/18/19 12/18/19 13:17 17:32 22:51 22:52 Temp 98.4 97.8 98.3 Pulse 76 78 83 Resp 18 18 16 18 B/P (MAP) 150/83 (105) 147/75 (99) 147/76 (99) Pulse Ox 96 94 94 93 O2 Delivery Room Air Room Air Room Air Room Air O2 Flow Rate 0.00 FiO2 21 12/19/19 12/19/19 12/19/19 12/19/19 00:21 00:35 04:37 05:31 Temp 98.5 98.0 Pulse 75 75 Resp 18 18 B/P (MAP) 132/79 (96) 142/79 (100) Pulse Ox 90 93 O2 Delivery Room Air Room Air Room Air Room Air 12/19/19 12/19/19 12/19/19 08:45 10:18 10:38 Temp 97.9 Pulse 78 77 Resp 18 18 B/P (MAP) 135/78 (97) Pulse Ox 94 86 O2 Delivery Room Air Room Air FiO2 21 Intake and Output 12/19/19 07:00 Intake Total 780 ml Output Total 1500 ml Balance -720 ml General: Alert, Oriented X3, Cooperative, No acute distress HEENT: Atraumatic, PERRLA, EOMI, Mucous membr. 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.) Neuro: Normal gait, Normal speech, Strength at 5/5 X4 ext, Normal tone, Cranial nerves 3-12 NL, Reflexes 2+ Psych/Mental Status: Mental status NL, Mood NL All Results(Lab/Rad) Laboratory Tests Test 12/16/19 17:23 12/16/19 21:16 12/17/19 06:20 12/17/19 15:22 Bedside Glucose 318 325 287 236 Test 12/17/19 16:16 Bedside Glucose 212 Current Medications Medications (Trade) Dose Ordered Sig/Kandy Route PRN Reason Start Time Stop Time Status Last Admin Dose Admin Ceftriaxone Sodium 1000 mg/ Sodium Chloride 100 ml @ 100 mls/hr STAT STAT IV 12/15/19 18:00 12/15/19 23:17 DC 12/15/19 18:41 Sodium Chloride 100 ml @ ud STK-MED ONCE IV 12/15/19 18:08 12/15/19 18:10 DC Ceftriaxone Sodium (Rocephin) 1,000 mg STK-MED ONCE .ROUTE 12/15/19 18:08 12/15/19 18:10 DC Clindamycin Phosphate 50 ml @ 50 mls/hr Q8 IV 12/15/19 22:00 12/16/19 00:56 DC 12/15/19 22:40 Penicillin G Potassium (Penicillin) 6 mu Q6HR IV 12/16/19 00:00 12/16/19 00:56 DC Clindamycin Phosphate 50 ml @ 50 mls/hr Q8 IV 12/16/19 03:30 12/15/19 23:18 DC Penicillin G Potassium (Penicillin) 6 mu Q6H IV 12/16/19 01:30 12/15/19 23:22 DC Sodium Chloride 250 ml @ ud STK-MED ONCE IV 12/15/19 22:37 12/15/19 22:39 DC Ceftriaxone Sodium 2000 mg/ Sodium Chloride 100 ml @ 100 mls/hr Q12HR IV 12/16/19 07:00 12/16/19 08:32 DC 12/16/19 06:14 Ceftriaxone Sodium (Rocephin) 1,000 mg STK-MED ONCE .ROUTE 12/16/19 04:43 12/16/19 04:46 DC Sodium Chloride 100 ml @ ud STK-MED ONCE IV 12/16/19 04:44 12/16/19 04:46 DC Ceftriaxone Sodium (Rocephin) 1,000 mg STK-MED ONCE .ROUTE 12/16/19 06:06 12/16/19 06:09 DC Vancomycin HCl 1600 mg/Sodium Chloride 300 ml @ 175 mls/hr Q12H IV 12/16/19 09:30 01/15/20 09:29 12/17/19 10:06 Insulin Glargine (Lantus) 20 unit HS SQ 12/16/19 21:00 01/15/20 20:59 12/16/19 21:27 Insulin Human Regular (Humulin R) 2 unit OT ONCE SQ 12/16/19 12:00 12/16/19 12:48 DC 12/16/19 12:46 Sodium Chloride (Sodium Chloride Irr Bottle) 1,000 ml STK-MED ONCE IR 12/17/19 13:08 12/17/19 13:09 DC Lidocaine/ Epinephrine (Xylocaine 2%-Epi 1:100,000) 20 ml STK-MED ONCE .ROUTE 12/17/19 13:08 12/17/19 13:10 DC Ketamine HCl (KETAMINE [id number]) 500 mg STK-MED ONCE .ROUTE 12/17/19 13:42 12/17/19 13:44 DC Propofol (Diprivan) 200 mg STK-MED ONCE IV 12/17/19 13:42 12/17/19 13:44 DC Sodium Chloride (Sodium Chloride Irr Bottle) 1,000 ml STK-MED ONCE IR 12/17/19 14:20 12/17/19 14:23 DC Propofol (Diprivan) 200 mg STK-MED ONCE IV 12/17/19 14:30 12/17/19 14:32 DC Tramadol HCl (Ultram) 50 mg Q6H PRN PO PAIN 1 - 3 12/17/19 15:00 01/16/20 14:59 Tramadol HCl (Ultram) 100 mg Q6H PRN PO PAIN 4 - 6 12/17/19 15:00 01/16/20 14:59 Docusate Sodium (Colace) 100 mg DAILY PO 12/18/19 09:00 01/17/20 08:59 Throat Lozenges (Cepacol Sore Throat Lozenge) 1 each PRN PRN MM SORE THROAT 12/17/19 15:00 01/16/20 14:59 Famotidine (Pepcid) 20 mg DAILY PO 12/18/19 09:00 01/17/20 08:59 Morphine Sulfate (Morphine Sulfate) 2 mg Q4H PRN IV PAIN 4 - 6 12/17/19 15:00 01/16/20 14:59 Labetalol HCl (Trandate) 20 mg Q4H PRN IV HYPERTENSION 12/17/19 16:30 01/16/20 16:29 12/17/19 16:26 Course Sepsis Screening Results: Posi: NEGATIVE Sepsis Qualifier/Stage: NO DEFINITE RISK Duration or Total Time Spent w: 30 min Vitals & review Data Vital Sign - Last 24 Hours 12/16/19 12/16/19 12/17/19 12/17/19 20:00 20:40 00:00 04:29 Temp 100.1 97.7 97.9 Pulse 77 76 76 Resp 20 20 18 B/P (MAP) 157/79 (105) 146/66 (92) 156/86 (109) Pulse Ox 93 93 92 O2 Delivery Room Air Room Air Room Air Room Air 12/17/19 12/17/19 12/17/19 12/17/19 08:01 08:55 14:55 14:55 Temp 97.8 97.0 Pulse 71 75 Resp 18 16 B/P (MAP) 161/81 (107) 118/64 (82) Pulse Ox 94 100 O2 Delivery Room Air Room Air Non-Rebreather O2 Flow Rate 15 15 12/17/19 12/17/19 12/17/19 12/17/19 15:00 15:05 15:10 15:15 Temp 98.1 Pulse 75 74 74 76 Resp 16 16 16 16 B/P (MAP) 138/80 (99) 145/80 (101) 163/86 (111) 159/85 (109) Pulse Ox 100 100 100 98 O2 Delivery Non-Rebreather Non-Rebreather Non-Rebreather Room Air O2 Flow Rate 15 15 15 12/17/19 12/17/19 15:25 15:35 Temp 98.0 Pulse 77 75 Resp 16 16 B/P (MAP) 156/95 (115) 159/88 (111) Pulse Ox 95 95 O2 Delivery Room Air Room Air Intake and Output 12/17/19 07:00 Intake Total 1232 ml Balance 1232 ml Laboratory Tests Test 12/15/19 18:11 12/15/19 19:52 12/16/19 05:00 12/16/19 10:54 White Blood Count 14.6 10^3/uL 13.9 10^3/uL Red Blood Count 5.31 10^6/uL 5.20 10^6/uL Hemoglobin 15.5 g/dL 15.2 g/dL Hematocrit 44.2 % 43.7 % Mean Corpuscular Volume 83.2 fL 84.0 fL Mean Corpuscular Hemoglobin 29.2 pg 29.2 pg Mean Corpuscular Hemoglobin Concent 35.1 g/dL 34.8 g/dL Red Cell Distribution Width 13.0 % 13.1 % Platelet Count 260 10^3/uL 249 10^3/uL Mean Platelet Volume 9.5 fL 9.7 fL Neutrophils (%) (Auto) 80.7 % 77.5 % Lymphocytes (%) (Auto) 10.9 % 12.7 % Monocytes (%) (Auto) 6.4 % 7.1 % Neutrophils # (Auto) 11.8 10^3/uL 10.8 10^3/uL Lymphocytes # (Auto) 1.60 10^3/uL1 1.76 10^3/uL1 Monocytes # (Auto) 0.9 10^3/uL 1.0 10^3/uL Absolute Immature Granulocyte (auto 0.23 10^3 u/L 0.24 10^3 u/L Absolute Eosinophils (auto) 0.1 10^3/uL 0.1 10^3/uL Immature Granulocytes % 1.60 % 1.70 % Eosinophils % 0.3 % 0.8 % Basophils % 0.1 % 0.2 % Basophils # 0.0 10^3/uL 0.0 10^3/uL Sodium Level 136 mmol/L 138 mmol/L Potassium Level 4.1 mmol/L 4.2 mmol/L Chloride Level 101.0 mmol/L 102.0 mmol/L Carbon Dioxide Level 26.8 mmol/L 27.3 mmol/L Anion Gap 12.3 12.9 Blood Urea Nitrogen 18 mg/dL 14 mg/dL Creatinine 0.90 mg/dL 0.89 mg/dL Estimated GFR () 104.2 105.5 Est GFR (CKD-EPI)(Non-Afr [place]ian) 86.1 87.2 BUN/Creatinine Ratio 20.0 15.0 Glucose Level 332 mg/dL 334 mg/dL Calcium Level 9.1 mg/dL 8.9 mg/dL Total Bilirubin 0.5 mg/dL 0.4 mg/dL Aspartate Amino Transf (AST/SGOT) 13 U/L 12 U/L Alanine Aminotransferase (ALT/SGPT) 21 U/L 19 U/L Alkaline Phosphatase 91 U/L 89 U/L Total Protein 6.9 g/dL 6.4 g/dL Albumin 2.8 g/dL 2.7 g/dL Globulin 4.1 3.7 Albumin/Globulin Ratio 0.682 0.729 Bedside Glucose 301 322 Hemoglobin A1c 10.9 % Test 12/16/19 17:23 12/16/19 21:16 12/17/19 06:20 12/17/19 15:22 Bedside Glucose 318 325 287 236 Test 12/17/19 16:16 Bedside Glucose 212 Current Medications Medications (Trade) Dose Ordered Sig/Kandy PRN Reason Start Time Stop Time Status Last Admin Docusate Sodium (Colace) 100 mg DAILY 12/18/19 09:00 01/17/20 08:59 Famotidine (Pepcid) 20 mg DAILY 12/18/19 09:00 01/17/20 08:59 Insulin Glargine (Lantus) 20 unit HS 12/16/19 21:00 01/15/20 20:59 12/16/19 21:27 Labetalol HCl (Trandate) 20 mg Q4H PRN HYPERTENSION 12/17/19 16:30 01/16/20 16:29 12/17/19 16:26 Morphine Sulfate (Morphine Sulfate) 2 mg Q4H PRN PAIN 4 - 6 12/17/19 15:00 01/16/20 14:59 Throat Lozenges (Cepacol Sore Throat Lozenge) 1 each PRN PRN SORE THROAT 12/17/19 15:00 01/16/20 14:59 Tramadol HCl (Ultram) 50 mg Q6H PRN PAIN 1 - 3 12/17/19 15:00 01/16/20 14:59 Tramadol HCl (Ultram) 100 mg Q6H PRN PAIN 4 - 6 12/17/19 15:00 01/16/20 14:59 Vancomycin HCl 1600 mg/Sodium Chloride 300 ml @ 175 mls/hr Q12H 12/16/19 09:30 01/15/20 09:29 12/17/19 10:06 LEVEL 1 SEPSIS INFECTION CRITE: ABX Therapy LEVEL 2-SIRS (LIST ALL THAT AP: None/Not assessed Cardiovascular Evidence: Not Assessed or None Hematologic Evidence: None/Not assessed Hepatic Evidence: None/Not assessed Metabolic Evidence: None/Not assessed Neurological Evidence: None/Not assessed Respiratory Evidence: None/Not assessed Renal Evidence: None/Not assessed O2 Sat by Pulse Oximetry: 86 Oxygen Flow Rate: 0.00 Assessment/Plan Assessment/Plan Assessment/Plan Pending wound culture and blood culture. Continue IV abx and anticipated for DC tomorrow with 2 week of po abx. Problems: (1) Peripheral neuropathy Status: Chronic ICD Code: G62.9 - Polyneuropathy, unspecified SNOMED: 822579209 (2) Cellulitis of right lower extremity Status: Acute ICD Code: L03.115 - Cellulitis of right lower limb SNOMED: 084104368 (3) Hyperglycemia due to type 2 diabetes mellitus Status: Acute ICD Code: E11.65 - Type 2 diabetes mellitus with hyperglycemia SNOMED: 67729776, [id number] (4) Septic arthritis of interphalangeal joint of toe of right foot Status: Acute ICD Code: M00.9 - Pyogenic arthritis, unspecified SNOMED: 872618487, [id number] (5) Osteomyelitis of great toe of right foot Status: Acute ICD Code: M86.9 - Osteomyelitis, unspecified SNOMED: 802220720, 361530141, [id number] (6) Gas gangrene of foot Status: Acute ICD Code: A48.0 - Gas gangrene SNOMED: 102364869 Plan Pending wound culture and blood culture. Continue IV abx POD #2 patient is doing very well and improved redness of the right lower ankle cellulitis has improved Still pending blood and wound cultures growing gram neg rods and gram positive cocci AD WICK MD Dec 19, 2019 10:55
[2019-12-19 11:45] VITALS: BP 145/86
[2019-12-19] MEDS: VANCOMYCIN 1,500 MG in NS 250ML 300 ML IV SCH ×2 (11:50→18:25)
--- NOTE | 2019-12-19 13:50 | PRM.PN ---
Subjective Subjective Date: Dec 19, 2019 Time: 13:48 Subjective Pain ok Afebrile VSS Cultures = Klebsiella and Enterococcus OK to dc on PO meds when stable medically Appt in my office on . Patient History: Patient reports no known family medical history. VTE VTE Risk Total Score: 2 VTE Risk Score VTE Risk: Score 0-1 = Low Risk (Aggressive mobilization; early ambulation; no VTE prophylaxis required) Score 2: Moderate Risk (Intermittent/Pneumatic Compression Device OR Lovenox/Heparin/Coumadin) Score 3-4: High Risk (Intermittent/Pneumatic Compression Device AND Lovenox/Heparin/Coumadin) Score > or =5: Highest Risk (Intermittent/Pneumatic Compression Device AND Lovenox/Heparin/Coumadin) Review of Systems Constitutional: Chills; No: Fever, Sweats, Weakness, Malaise Eyes: No: Pain, Vision change, Conjunctivae inflammation, Eyelid inflammation, Redness ENT: No: Ear pain, Ear discharge, Nose pain, Nose discharge, Nose congestion, Mouth pain, Mouth swelling, Throat pain, Throat swelling Respiratory: No: Cough, Dry, Shortness of breath, SOB with excertion, Wheezing, Hemoptysis, Pleuritic Pain, Sputum, Wheezing Cardiovascular: No: Chest Pain, Palpitations, Orthopnea, Paroxysmal Noc. Dyspnea, Edema, Lt Headedness Gastrointestinal: No: Nausea, Vomiting, Abdominal Pain, Diarrhea, Constipation, Melena, Hematochezia Genitourinary: No Dysuria, No Frequency, No Incontinence, No Hematuria, No Retention Musculoskeletal: foot pain; No: neck pain, shoulder pain, arm pain, back pain, hand pain, leg pain Skin: No: Rash, Lesions, Jaundice, Bruising Neurological: Numbness; No: Weakness, Incoordination, Change in speech, Confusion, Seizures Allergies: Coded Allergies: No Known Allergies (Unverified , 12/15/19) Scheduled Metformin Hcl (Metformin Hcl), 1 TAB PO BID, (Reported) Objective Vitals and I/O Vital Sign - Last 24 Hours 12/18/19 12/18/19 12/18/19 12/19/19 17:32 22:51 22:52 00:21 Temp 97.8 98.3 98.5 Pulse 78 83 75 Resp 18 16 18 18 B/P (MAP) 147/75 (99) 147/76 (99) 132/79 (96) Pulse Ox 94 94 93 90 O2 Delivery Room Air Room Air Room Air Room Air O2 Flow Rate 0.00 FiO2 21 12/19/19 12/19/19 12/19/19 12/19/19 00:35 04:37 05:31 08:45 Temp 98.0 97.9 Pulse 75 78 Resp 18 18 B/P (MAP) 142/79 (100) 135/78 (97) Pulse Ox 93 94 O2 Delivery Room Air Room Air Room Air Room Air 12/19/19 12/19/19 10:18 10:38 Pulse 77 Resp 18 Pulse Ox 86 O2 Delivery Room Air FiO2 21 Intake and Output 12/19/19 06:59 Intake Total 780 ml Output Total 1500 ml Balance -720 ml General: Alert, Oriented X3, Cooperative, No acute distress HEENT: Atraumatic, PERRLA, EOMI, Mucous membr. 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.) Neuro: Normal gait, Normal speech, Strength at 5/5 X4 ext, Normal tone, Cranial nerves 3-12 NL, Reflexes 2+ Psych/Mental Status: Mental status NL, Mood NL All Results(Lab/Rad) Laboratory Tests Test 12/16/19 17:23 12/16/19 21:16 12/17/19 06:20 12/17/19 15:22 Bedside Glucose 318 325 287 236 Test 12/17/19 16:16 Bedside Glucose 212 Current Medications Medications (Trade) Dose Ordered Sig/Kandy Route PRN Reason Start Time Stop Time Status Last Admin Dose Admin Ceftriaxone Sodium 1000 mg/ Sodium Chloride 100 ml @ 100 mls/hr STAT STAT IV 12/15/19 18:00 12/15/19 23:17 DC 12/15/19 18:41 Sodium Chloride 100 ml @ ud STK-MED ONCE IV 12/15/19 18:08 12/15/19 18:10 DC Ceftriaxone Sodium (Rocephin) 1,000 mg STK-MED ONCE .ROUTE 12/15/19 18:08 12/15/19 18:10 DC Clindamycin Phosphate 50 ml @ 50 mls/hr Q8 IV 12/15/19 22:00 12/16/19 00:56 DC 12/15/19 22:40 Penicillin G Potassium (Penicillin) 6 mu Q6HR IV 12/16/19 00:00 12/16/19 00:56 DC Clindamycin Phosphate 50 ml @ 50 mls/hr Q8 IV 12/16/19 03:30 12/15/19 23:18 DC Penicillin G Potassium (Penicillin) 6 mu Q6H IV 12/16/19 01:30 12/15/19 23:22 DC Sodium Chloride 250 ml @ ud STK-MED ONCE IV 12/15/19 22:37 12/15/19 22:39 DC Ceftriaxone Sodium 2000 mg/ Sodium Chloride 100 ml @ 100 mls/hr Q12HR IV 12/16/19 07:00 12/16/19 08:32 DC 12/16/19 06:14 Ceftriaxone Sodium (Rocephin) 1,000 mg STK-MED ONCE .ROUTE 12/16/19 04:43 12/16/19 04:46 DC Sodium Chloride 100 ml @ ud STK-MED ONCE IV 12/16/19 04:44 12/16/19 04:46 DC Ceftriaxone Sodium (Rocephin) 1,000 mg STK-MED ONCE .ROUTE 12/16/19 06:06 12/16/19 06:09 DC Vancomycin HCl 1600 mg/Sodium Chloride 300 ml @ 175 mls/hr Q12H IV 12/16/19 09:30 01/15/20 09:29 12/17/19 10:06 Insulin Glargine (Lantus) 20 unit HS SQ 12/16/19 21:00 01/15/20 20:59 12/16/19 21:27 Insulin Human Regular (Humulin R) 2 unit OT ONCE SQ 12/16/19 12:00 12/16/19 12:48 DC 12/16/19 12:46 Sodium Chloride (Sodium Chloride Irr Bottle) 1,000 ml STK-MED ONCE IR 12/17/19 13:08 12/17/19 13:09 DC Lidocaine/ Epinephrine (Xylocaine 2%-Epi 1:100,000) 20 ml STK-MED ONCE .ROUTE 12/17/19 13:08 12/17/19 13:10 DC Ketamine HCl (KETAMINE CRG-Wsz-Vbmaykdab) 500 mg STK-MED ONCE .ROUTE 12/17/19 13:42 12/17/19 13:44 DC Propofol (Diprivan) 200 mg STK-MED ONCE IV 12/17/19 13:42 12/17/19 13:44 DC Sodium Chloride (Sodium Chloride Irr Bottle) 1,000 ml STK-MED ONCE IR 12/17/19 14:20 12/17/19 14:23 DC Propofol (Diprivan) 200 mg STK-MED ONCE IV 12/17/19 14:30 12/17/19 14:32 DC Tramadol HCl (Ultram) 50 mg Q6H PRN PO PAIN 1 - 3 12/17/19 15:00 01/16/20 14:59 Tramadol HCl (Ultram) 100 mg Q6H PRN PO PAIN 4 - 6 12/17/19 15:00 01/16/20 14:59 Docusate Sodium (Colace) 100 mg DAILY PO 12/18/19 09:00 01/17/20 08:59 Throat Lozenges (Cepacol Sore Throat Lozenge) 1 each PRN PRN MM SORE THROAT 12/17/19 15:00 01/16/20 14:59 Famotidine (Pepcid) 20 mg DAILY PO 12/18/19 09:00 01/17/20 08:59 Morphine Sulfate (Morphine Sulfate) 2 mg Q4H PRN IV PAIN 4 - 6 12/17/19 15:00 01/16/20 14:59 Labetalol HCl (Trandate) 20 mg Q4H PRN IV HYPERTENSION 12/17/19 16:30 01/16/20 16:29 12/17/19 16:26 Course Sepsis Screening Results: Posi: NEGATIVE Sepsis Qualifier/Stage: NO DEFINITE RISK Duration or Total Time Spent w: 30 min Vitals & review Data Vital Sign - Last 24 Hours 12/16/19 12/16/19 12/17/19 12/17/19 20:00 20:40 00:00 04:29 Temp 100.1 97.7 97.9 Pulse 77 76 76 Resp 20 20 18 B/P (MAP) 157/79 (105) 146/66 (92) 156/86 (109) Pulse Ox 93 93 92 O2 Delivery Room Air Room Air Room Air Room Air 12/17/19 12/17/19 12/17/19 12/17/19 08:01 08:55 14:55 14:55 Temp 97.8 97.0 Pulse 71 75 Resp 18 16 B/P (MAP) 161/81 (107) 118/64 (82) Pulse Ox 94 100 O2 Delivery Room Air Room Air Non-Rebreather O2 Flow Rate 15 15 12/17/19 12/17/19 12/17/19 12/17/19 15:00 15:05 15:10 15:15 Temp 98.1 Pulse 75 74 74 76 Resp 16 16 16 16 B/P (MAP) 138/80 (99) 145/80 (101) 163/86 (111) 159/85 (109) Pulse Ox 100 100 100 98 O2 Delivery Non-Rebreather Non-Rebreather Non-Rebreather Room Air O2 Flow Rate 15 15 15 12/17/19 12/17/19 15:25 15:35 Temp 98.0 Pulse 77 75 Resp 16 16 B/P (MAP) 156/95 (115) 159/88 (111) Pulse Ox 95 95 O2 Delivery Room Air Room Air Intake and Output 12/17/19 07:00 Intake Total 1232 ml Balance 1232 ml Laboratory Tests Test 12/15/19 18:11 12/15/19 19:52 12/16/19 05:00 12/16/19 10:54 White Blood Count 14.6 10^3/uL 13.9 10^3/uL Red Blood Count 5.31 10^6/uL 5.20 10^6/uL Hemoglobin 15.5 g/dL 15.2 g/dL Hematocrit 44.2 % 43.7 % Mean Corpuscular Volume 83.2 fL 84.0 fL Mean Corpuscular Hemoglobin 29.2 pg 29.2 pg Mean Corpuscular Hemoglobin Concent 35.1 g/dL 34.8 g/dL Red Cell Distribution Width 13.0 % 13.1 % Platelet Count 260 10^3/uL 249 10^3/uL Mean Platelet Volume 9.5 fL 9.7 fL Neutrophils (%) (Auto) 80.7 % 77.5 % Lymphocytes (%) (Auto) 10.9 % 12.7 % Monocytes (%) (Auto) 6.4 % 7.1 % Neutrophils # (Auto) 11.8 10^3/uL 10.8 10^3/uL Lymphocytes # (Auto) 1.60 10^3/uL1 1.76 10^3/uL1 Monocytes # (Auto) 0.9 10^3/uL 1.0 10^3/uL Absolute Immature Granulocyte (auto 0.23 10^3 u/L 0.24 10^3 u/L Absolute Eosinophils (auto) 0.1 10^3/uL 0.1 10^3/uL Immature Granulocytes % 1.60 % 1.70 % Eosinophils % 0.3 % 0.8 % Basophils % 0.1 % 0.2 % Basophils # 0.0 10^3/uL 0.0 10^3/uL Sodium Level 136 mmol/L 138 mmol/L Potassium Level 4.1 mmol/L 4.2 mmol/L Chloride Level 101.0 mmol/L 102.0 mmol/L Carbon Dioxide Level 26.8 mmol/L 27.3 mmol/L Anion Gap 12.3 12.9 Blood Urea Nitrogen 18 mg/dL 14 mg/dL Creatinine 0.90 mg/dL 0.89 mg/dL Estimated GFR () 104.2 105.5 Est GFR (CKD-EPI)(Non-Afr Swiss) 86.1 87.2 BUN/Creatinine Ratio 20.0 15.0 Glucose Level 332 mg/dL 334 mg/dL Calcium Level 9.1 mg/dL 8.9 mg/dL Total Bilirubin 0.5 mg/dL 0.4 mg/dL Aspartate Amino Transf (AST/SGOT) 13 U/L 12 U/L Alanine Aminotransferase (ALT/SGPT) 21 U/L 19 U/L Alkaline Phosphatase 91 U/L 89 U/L Total Protein 6.9 g/dL 6.4 g/dL Albumin 2.8 g/dL 2.7 g/dL Globulin 4.1 3.7 Albumin/Globulin Ratio 0.682 0.729 Bedside Glucose 301 322 Hemoglobin A1c 10.9 % Test 12/16/19 17:23 12/16/19 21:16 12/17/19 06:20 12/17/19 15:22 Bedside Glucose 318 325 287 236 Test 12/17/19 16:16 Bedside Glucose 212 Current Medications Medications (Trade) Dose Ordered Sig/Kandy PRN Reason Start Time Stop Time Status Last Admin Docusate Sodium (Colace) 100 mg DAILY 12/18/19 09:00 01/17/20 08:59 Famotidine (Pepcid) 20 mg DAILY 12/18/19 09:00 01/17/20 08:59 Insulin Glargine (Lantus) 20 unit HS 12/16/19 21:00 01/15/20 20:59 12/16/19 21:27 Labetalol HCl (Trandate) 20 mg Q4H PRN HYPERTENSION 12/17/19 16:30 01/16/20 16:29 12/17/19 16:26 Morphine Sulfate (Morphine Sulfate) 2 mg Q4H PRN PAIN 4 - 6 12/17/19 15:00 01/16/20 14:59 Throat Lozenges (Cepacol Sore Throat Lozenge) 1 each PRN PRN SORE THROAT 12/17/19 15:00 01/16/20 14:59 Tramadol HCl (Ultram) 50 mg Q6H PRN PAIN 1 - 3 12/17/19 15:00 01/16/20 14:59 Tramadol HCl (Ultram) 100 mg Q6H PRN PAIN 4 - 6 12/17/19 15:00 01/16/20 14:59 Vancomycin HCl 1600 mg/Sodium Chloride 300 ml @ 175 mls/hr Q12H 12/16/19 09:30 01/15/20 09:29 12/17/19 10:06 LEVEL 1 SEPSIS INFECTION CRITE: ABX Therapy LEVEL 2-SIRS (LIST ALL THAT AP: None/Not assessed Cardiovascular Evidence: Not Assessed or None Hematologic Evidence: None/Not assessed Hepatic Evidence: None/Not assessed Metabolic Evidence: None/Not assessed Neurological Evidence: None/Not assessed Respiratory Evidence: None/Not assessed Renal Evidence: None/Not assessed O2 Sat by Pulse Oximetry: 86 Oxygen Flow Rate: 0.00 Assessment/Plan Assessment/Plan Assessment/Plan Pending wound culture and blood culture. Continue IV abx POD #2 patient is doing very well and improved redness of the right lower ankle cellulitis has improved Still pending blood and wound cultures growing gram neg rods and gram positive cocci Plan Pending wound culture and blood culture. Continue IV abx POD #2 patient is doing very well and improved redness of the right lower ankle cellulitis has improved Still pending blood and wound cultures growing gram neg rods and gram positive c occi EMELY RAHMAN MD Dec 19, 2019 13:50
[2019-12-19 17:00] VITALS: BP 137/95
[2019-12-19 19:46] VITALS: BP 156/76
[2019-12-19] MEDS: LANTUS SQ SCH (21:28)
[2019-12-20 00:46] VITALS: BP 137/64
[2019-12-20] MEDS: VANCOMYCIN 1,500 MG in NS 250ML 300 ML IV SCH ×2 (03:07→12:01)
[2019-12-20 03:13] VITALS: BP 140/76
[2019-12-20] MEDS ORDERED: NS 250ML 250 ML IV ONE (04:23)
[2019-12-20 06:19] LABS: RED CELL DISTRIBUTION WIDTH 12.8 % (11.5-14.5)
[2019-12-20 06:33] LABS: CALCIUM 8.5 mg/dL (8.4-10.5); CARBON DIOXIDE 28.5 mmol/L (20.0-32)
--- NOTE | 2019-12-20 06:45 | NUR ---
REPORT Received report from CHEY Alegria. Assumed care of pt at this time, will continue to monitor.
[2019-12-20] MEDS: HUMULIN R SQ SCH ×4 (07:57→21:54)
[2019-12-20 08:15] VITALS: BP 138/82
[2019-12-20] MEDS: PEPCID PO SCH (09:53)
[2019-12-20] MEDS: GLUCOPHAGE PO SCH ×2 (09:54→21:54)
[2019-12-20] MEDS: COLACE PO SCH (09:54)
--- NOTE | 2019-12-20 11:30 | NUR ---
DISCHARGE UPDATE CM F/U WITH PT AND CONTACTED DR. JI WALKER IN [place] AT BEDSIDE TO RESCHEDULE F/U APPOINTMENT FOR FRIDAY @ 09. PT STATES HE DOES HAVE A GLUCOMETER AT HOME AND HAS PLANS TO F/U WITH DR. RAHMAN ON FRIDAY.
[2019-12-20 12:27] VITALS: BP 144/78
[2019-12-20 16:30] VITALS: BP 138/80
[2019-12-20 19:40] VITALS: BP 132/81
[2019-12-20] MEDS: VANCOMYCIN HCL 1 GM in NS 250ML 250 ML IV SCH (20:35)
--- NOTE | 2019-12-20 21:36 | PRM.PN ---
Progress Note Subjective Date: Dec 20, 2019 Time: 13:30 Physician Notes: Pain controlled, no fevers. No acute events overnight. Feeling better. Objective Review IO, Exams,& Results Problems Acute/Active Problems: (1) Gas gangrene of foot Vital Signs Date Time Temp Pulse Resp B/P (MAP) Pulse Ox O2 Delivery O2 Flow Rate FiO2 12/20/19 16:30 98.7 74 16 138/80 (99) 94 Room Air 12/20/19 08:48 21 12/19/19 23:19 1.00 Intake and Output 12/20/19 07:00 Intake Total 240 ml Output Total 1400 ml Balance -1160 ml Intake Oral 240 ml Output Urine Total 1400 ml Laboratory Tests Test 12/19/19 07:48 12/19/19 08:05 12/19/19 11:52 12/19/19 17:37 Bedside Glucose 246 240 238 White Blood Count 13.7 10^3/uL Red Blood Count 5.59 10^6/uL Hemoglobin 16.0 g/dL Hematocrit 46.9 % Mean Corpuscular Volume 83.9 fL Mean Corpuscular Hemoglobin 28.6 pg Mean Corpuscular Hemoglobin Concent 34.1 g/dL Red Cell Distribution Width 12.9 % Platelet Count 266 10^3/uL Mean Platelet Volume 9.1 fL Sodium Level 133 mmol/L Potassium Level 4.2 mmol/L Chloride Level 100.0 mmol/L Carbon Dioxide Level 24.5 mmol/L Glucose Level 251 mg/dL Blood Urea Nitrogen 10 mg/dL Creatinine 0.77 mg/dL Calcium Level 8.3 mg/dL Anion Gap 12.7 Estimated GFR () 124.7 Est GFR (CKD-EPI)(Non-Afr [place]ian) 103.1 BUN/Creatinine Ratio 12.0 Vancomycin Level Trough 8.9 ug/mL Test 12/19/19 19:54 12/20/19 05:08 12/20/19 05:51 12/20/19 07:46 Bedside Glucose 210 177 199 White Blood Count 14.2 10^3/uL Red Blood Count 5.25 10^6/uL Hemoglobin 15.2 g/dL Hematocrit 44.5 % Mean Corpuscular Volume 84.8 fL Mean Corpuscular Hemoglobin 29.0 pg Mean Corpuscular Hemoglobin Concent 34.2 g/dL Red Cell Distribution Width 12.8 % Platelet Count 277 10^3/uL Mean Platelet Volume 9.4 fL Sodium Level 137 mmol/L Potassium Level 4.0 mmol/L Chloride Level 101.0 mmol/L Carbon Dioxide Level 28.5 mmol/L Anion Gap 11.5 Blood Urea Nitrogen 10 mg/dL Creatinine 0.85 mg/dL Estimated GFR () 111.3 Est GFR (CKD-EPI)(Non-Afr [place]ian) 91.9 BUN/Creatinine Ratio 11.0 Glucose Level 179 mg/dL Calcium Level 8.5 mg/dL Total Bilirubin 0.6 mg/dL Aspartate Amino Transf (AST/SGOT) 16 U/L Alanine Aminotransferase (ALT/SGPT) 22 U/L Alkaline Phosphatase 103 U/L Total Protein 6.6 g/dL Albumin 2.4 g/dL Globulin 4.2 Albumin/Globulin Ratio 0.571 Test 12/20/19 10:39 12/20/19 12:08 12/20/19 17:17 12/20/19 20:57 Vancomycin Level Trough 14.5 ug/mL Bedside Glucose 239 236 178 Current Medications Medications (Trade) Dose Ordered Sig/Kandy PRN Reason Start Time Stop Time Status Last Admin Dextrose (Dextrose 50%-Water Syringe) 25 ml STAT PRN HYPOGLYCEMIA 12/18/19 12:30 01/17/20 12:29 Docusate Sodium (Colace) 100 mg DAILY 12/18/19 09:00 01/17/20 08:59 12/20/19 09:54 Famotidine (Pepcid) 20 mg DAILY 12/18/19 09:00 01/17/20 08:59 12/20/19 09:53 Insulin Human Regular (Humulin R) Give 30 minutes before meal ACHS 12/18/19 17:30 01/17/20 17:29 12/20/19 17:22 Metformin HCl (Glucophage) 1,000 mg BID 12/18/19 12:30 01/17/20 12:29 12/20/19 09:54 Vancomycin HCl 1 gm/Sodium Chloride 250 ml @ 145.843 mls/hr Q8H 12/20/19 19:00 01/19/20 18:59 12/20/19 20:35 Lakisha - SAKSHI CHAVEZ DO Blood Culture (12/20/19 16:41) Heart: Regular rate, Normal S1, Normal S2 Abdomen: Normal bowel sounds, Soft, No tenderness Lungs: Clear to auscultation, Normal air movement Complications/Observations Dressing R foot CDI. Assessment & Plan: Problems/Diagnosis: (1) Osteomyelitis of great toe of right foot ICD Code: M86.9 - Osteomyelitis, unspecified SNOMED: 222076085, [id number], [id number] Status: Acute (2) Gas gangrene of foot ICD Code: A48.0 - Gas gangrene SNOMED: 500050976 Status: Acute (3) Hyperglycemia due to type 2 diabetes mellitus ICD Code: E11.65 - Type 2 diabetes mellitus with hyperglycemia SNOMED: 35327687, [id number] Status: Acute (4) Cellulitis of right lower extremity ICD Code: L03.115 - Cellulitis of right lower limb SNOMED: 567580809 Status: Acute (5) Peripheral neuropathy ICD Code: G62.9 - Polyneuropathy, unspecified SNOMED: [id number] Status: Chronic Plan Wound culture final, blood cultures drawn today. Cont IV abx, anticipate dc on oral abx tomorrow if bcx NG 24h. POD #3, pt doing well. D/w ortho today and Dr. Johnson rec'd 30 day asa 81mg BID for vte ppx. SAKSHI CHAVEZ DO Dec 20, 2019 21:36
[2019-12-20] MEDS: LANTUS SQ SCH (21:52)
[2019-12-21 00:05] VITALS: BP 129/83
[2019-12-21] MEDS: VANCOMYCIN HCL 1 GM in NS 250ML 250 ML IV SCH ×2 (03:42→13:25)
[2019-12-21 05:00] VITALS: BP 121/67
[2019-12-21 07:50] VITALS: BP 129/68
[2019-12-21] MEDS: HUMULIN R SQ SCH ×3 (08:43→17:30)
[2019-12-21] MEDS: GLUCOPHAGE PO SCH (09:00)
[2019-12-21] MEDS: COLACE PO SCH (09:00)
[2019-12-21] MEDS: PEPCID PO SCH (09:00)
--- NOTE | 2019-12-21 09:28 | PRM.PN ---
Subjective Subjective Date: Dec 21, 2019 Time: 09:26 Subjective patient laying in bed, denies any new concerns slept well last night pain controlled right foot dressing intact VSS Patient History: Patient reports no known family medical history. VTE VTE Risk Total Score: 2 VTE Risk Score VTE Risk: Score 0-1 = Low Risk (Aggressive mobilization; early ambulation; no VTE prophylaxis required) Score 2: Moderate Risk (Intermittent/Pneumatic Compression Device OR Lovenox/Heparin/Coumadin) Score 3-4: High Risk (Intermittent/Pneumatic Compression Device AND Lovenox/Heparin/Coumadin) Score > or =5: Highest Risk (Intermittent/Pneumatic Compression Device AND Lovenox/Heparin/Coumadin) Review of Systems Constitutional: Chills; No: Fever, Sweats, Weakness, Malaise Eyes: No: Pain, Vision change, Conjunctivae inflammation, Eyelid inflammation, Redness ENT: No: Ear pain, Ear discharge, Nose pain, Nose discharge, Nose congestion, Mouth pain, Mouth swelling, Throat pain, Throat swelling Respiratory: No: Cough, Dry, Shortness of breath, SOB with excertion, Wheezing, Hemoptysis, Pleuritic Pain, Sputum, Wheezing Cardiovascular: No: Chest Pain, Palpitations, Orthopnea, Paroxysmal Noc. Dyspnea, Edema, Lt Headedness Gastrointestinal: No: Nausea, Vomiting, Abdominal Pain, Diarrhea, Constipation, Melena, Hematochezia Genitourinary: No Dysuria, No Frequency, No Incontinence, No Hematuria, No Retention Musculoskeletal: foot pain (right foot dressing); No: neck pain, shoulder pain, arm pain, back pain, hand pain, leg pain Skin: No: Rash, Lesions, Jaundice, Bruising Neurological: Numbness; No: Weakness, Incoordination, Change in speech, Confusion, Seizures Allergies: Coded Allergies: No Known Allergies (Unverified , 12/15/19) Scheduled Metformin Hcl (Metformin Hcl), 1 TAB PO BID, (Reported) Objective Vitals and I/O Vital Sign - Last 24 Hours 12/20/19 12/20/19 12/20/19 12/20/19 12:27 12:34 16:30 19:40 Temp 98.7 98.7 97.9 Pulse 74 74 83 Resp 16 16 16 B/P (MAP) 144/78 (100) 138/80 (99) 132/81 (98) Pulse Ox 94 94 94 O2 Delivery Room Air Room Air Room Air Room Air 12/20/19 12/21/19 12/21/19 12/21/19 20:00 00:05 01:07 05:00 Temp 98.0 97.9 Pulse 81 76 76 Resp 16 16 20 B/P (MAP) 129/83 (98) 121/67 (85) Pulse Ox 93 94 94 O2 Delivery Room Air Room Air Room Air Room Air 12/21/19 09:20 Pulse 56 Resp 20 Pulse Ox 99 O2 Delivery Room Air FiO2 21 Intake and Output 12/21/19 06:59 Intake Total 1120 ml Output Total 1150 ml Balance -30 ml General: Alert, Oriented X3, Cooperative, No acute distress HEENT: Atraumatic, PERRLA, EOMI, Mucous membr. 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.) Neuro: Normal gait, Normal speech, Strength at 5/5 X4 ext, Normal tone, Cranial nerves 3-12 NL, Reflexes 2+ Psych/Mental Status: Mental status NL, Mood NL All Results(Lab/Rad) Laboratory Tests Test 12/16/19 17:23 12/16/19 21:16 12/17/19 06:20 12/17/19 15:22 Bedside Glucose 318 325 287 236 Test 12/17/19 16:16 Bedside Glucose 212 Current Medications Medications (Trade) Dose Ordered Sig/Kandy Route PRN Reason Start Time Stop Time Status Last Admin Dose Admin Ceftriaxone Sodium 1000 mg/ Sodium Chloride 100 ml @ 100 mls/hr STAT STAT IV 12/15/19 18:00 12/15/19 23:17 DC 12/15/19 18:41 Sodium Chloride 100 ml @ ud STK-MED ONCE IV 12/15/19 18:08 12/15/19 18:10 DC Ceftriaxone Sodium (Rocephin) 1,000 mg STK-MED ONCE .ROUTE 12/15/19 18:08 12/15/19 18:10 DC Clindamycin Phosphate 50 ml @ 50 mls/hr Q8 IV 12/15/19 22:00 12/16/19 00:56 DC 12/15/19 22:40 Penicillin G Potassium (Penicillin) 6 mu Q6HR IV 12/16/19 00:00 12/16/19 00:56 DC Clindamycin Phosphate 50 ml @ 50 mls/hr Q8 IV 12/16/19 03:30 12/15/19 23:18 DC Penicillin G Potassium (Penicillin) 6 mu Q6H IV 12/16/19 01:30 12/15/19 23:22 DC Sodium Chloride 250 ml @ ud STK-MED ONCE IV 12/15/19 22:37 12/15/19 22:39 DC Ceftriaxone Sodium 2000 mg/ Sodium Chloride 100 ml @ 100 mls/hr Q12HR IV 12/16/19 07:00 12/16/19 08:32 DC 12/16/19 06:14 Ceftriaxone Sodium (Rocephin) 1,000 mg STK-MED ONCE .ROUTE 12/16/19 04:43 12/16/19 04:46 DC Sodium Chloride 100 ml @ ud STK-MED ONCE IV 12/16/19 04:44 12/16/19 04:46 DC Ceftriaxone Sodium (Rocephin) 1,000 mg STK-MED ONCE .ROUTE 12/16/19 06:06 12/16/19 06:09 DC Vancomycin HCl 1600 mg/Sodium Chloride 300 ml @ 175 mls/hr Q12H IV 12/16/19 09:30 01/15/20 09:29 12/17/19 10:06 Insulin Glargine (Lantus) 20 unit HS SQ 12/16/19 21:00 01/15/20 20:59 12/16/19 21:27 Insulin Human Regular (Humulin R) 2 unit OT ONCE SQ 12/16/19 12:00 12/16/19 12:48 DC 12/16/19 12:46 Sodium Chloride (Sodium Chloride Irr Bottle) 1,000 ml STK-MED ONCE IR 12/17/19 13:08 12/17/19 13:09 DC Lidocaine/ Epinephrine (Xylocaine 2%-Epi 1:100,000) 20 ml STK-MED ONCE .ROUTE 12/17/19 13:08 12/17/19 13:10 DC Ketamine HCl (KETAMINE UUW-Fdk-Szeuvavay) 500 mg STK-MED ONCE .ROUTE 12/17/19 13:42 10/2/20 13:44 DC Propofol (Diprivan) 200 mg STK-MED ONCE IV 12/17/19 13:42 12/17/19 13:44 DC Sodium Chloride (Sodium Chloride Irr Bottle) 1,000 ml STK-MED ONCE IR 12/17/19 14:20 12/17/19 14:23 DC Propofol (Diprivan) 200 mg STK-MED ONCE IV 12/17/19 14:30 12/17/19 14:32 DC Tramadol HCl (Ultram) 50 mg Q6H PRN PO PAIN 1 - 3 12/17/19 15:00 01/16/20 14:59 Tramadol HCl (Ultram) 100 mg Q6H PRN PO PAIN 4 - 6 12/17/19 15:00 01/16/20 14:59 Docusate Sodium (Colace) 100 mg DAILY PO 12/18/19 09:00 01/17/20 08:59 Throat Lozenges (Cepacol Sore Throat Lozenge) 1 each PRN PRN MM SORE THROAT 12/17/19 15:00 01/16/20 14:59 Famotidine (Pepcid) 20 mg DAILY PO 12/18/19 09:00 01/17/20 08:59 Morphine Sulfate (Morphine Sulfate) 2 mg Q4H PRN IV PAIN 4 - 6 12/17/19 15:00 01/16/20 14:59 Labetalol HCl (Trandate) 20 mg Q4H PRN IV HYPERTENSION 12/17/19 16:30 01/16/20 16:29 12/17/19 16:26 Course Sepsis Screening Results: Posi: NEGATIVE Sepsis Qualifier/Stage: NO DEFINITE RISK Duration or Total Time Spent w: 30 min Vitals & review Data Vital Sign - Last 24 Hours 12/16/19 12/16/19 12/17/19 12/17/19 20:00 20:40 00:00 04:29 Temp 100.1 97.7 97.9 Pulse 77 76 76 Resp 20 20 18 B/P (MAP) 157/79 (105) 146/66 (92) 156/86 (109) Pulse Ox 93 93 92 O2 Delivery Room Air Room Air Room Air Room Air 12/17/19 12/17/19 12/17/19 12/17/19 08:01 08:55 14:55 14:55 Temp 97.8 97.0 Pulse 71 75 Resp 18 16 B/P (MAP) 161/81 (107) 118/64 (82) Pulse Ox 94 100 O2 Delivery Room Air Room Air Non-Rebreather O2 Flow Rate 15 15 12/17/19 12/17/19 12/17/19 12/17/19 15:00 15:05 15:10 15:15 Temp 98.1 Pulse 75 74 74 76 Resp 16 16 16 16 B/P (MAP) 138/80 (99) 145/80 (101) 163/86 (111) 159/85 (109) Pulse Ox 100 100 100 98 O2 Delivery Non-Rebreather Non-Rebreather Non-Rebreather Room Air O2 Flow Rate 15 15 15 12/17/19 12/17/19 15:25 15:35 Temp 98.0 Pulse 77 75 Resp 16 16 B/P (MAP) 156/95 (115) 159/88 (111) Pulse Ox 95 95 O2 Delivery Room Air Room Air Intake and Output 12/17/19 07:00 Intake Total 1232 ml Balance 1232 ml Laboratory Tests Test 12/15/19 18:11 12/15/19 19:52 12/16/19 05:00 12/16/19 10:54 White Blood Count 14.6 10^3/uL 13.9 10^3/uL Red Blood Count 5.31 10^6/uL 5.20 10^6/uL Hemoglobin 15.5 g/dL 15.2 g/dL Hematocrit 44.2 % 43.7 % Mean Corpuscular Volume 83.2 fL 84.0 fL Mean Corpuscular Hemoglobin 29.2 pg 29.2 pg Mean Corpuscular Hemoglobin Concent 35.1 g/dL 34.8 g/dL Red Cell Distribution Width 13.0 % 13.1 % Platelet Count 260 10^3/uL 249 10^3/uL Mean Platelet Volume 9.5 fL 9.7 fL Neutrophils (%) (Auto) 80.7 % 77.5 % Lymphocytes (%) (Auto) 10.9 % 12.7 % Monocytes (%) (Auto) 6.4 % 7.1 % Neutrophils # (Auto) 11.8 10^3/uL 10.8 10^3/uL Lymphocytes # (Auto) 1.60 10^3/uL1 1.76 10^3/uL1 Monocytes # (Auto) 0.9 10^3/uL 1.0 10^3/uL Absolute Immature Granulocyte (auto 0.23 10^3 u/L 0.24 10^3 u/L Absolute Eosinophils (auto) 0.1 10^3/uL 0.1 10^3/uL Immature Granulocytes % 1.60 % 1.70 % Eosinophils % 0.3 % 0.8 % Basophils % 0.1 % 0.2 % Basophils # 0.0 10^3/uL 0.0 10^3/uL Sodium Level 136 mmol/L 138 mmol/L Potassium Level 4.1 mmol/L 4.2 mmol/L Chloride Level 101.0 mmol/L 102.0 mmol/L Carbon Dioxide Level 26.8 mmol/L 27.3 mmol/L Anion Gap 12.3 12.9 Blood Urea Nitrogen 18 mg/dL 14 mg/dL Creatinine 0.90 mg/dL 0.89 mg/dL Estimated GFR () 104.2 105.5 Est GFR (CKD-EPI)(Non-Afr Spanish) 86.1 87.2 BUN/Creatinine Ratio 20.0 15.0 Glucose Level 332 mg/dL 334 mg/dL Calcium Level 9.1 mg/dL 8.9 mg/dL Total Bilirubin 0.5 mg/dL 0.4 mg/dL Aspartate Amino Transf (AST/SGOT) 13 U/L 12 U/L Alanine Aminotransferase (ALT/SGPT) 21 U/L 19 U/L Alkaline Phosphatase 91 U/L 89 U/L Total Protein 6.9 g/dL 6.4 g/dL Albumin 2.8 g/dL 2.7 g/dL Globulin 4.1 3.7 Albumin/Globulin Ratio 0.682 0.729 Bedside Glucose 301 322 Hemoglobin A1c 10.9 % Test 12/16/19 17:23 12/16/19 21:16 12/17/19 06:20 12/17/19 15:22 Bedside Glucose 318 325 287 236 Test 12/17/19 16:16 Bedside Glucose 212 Current Medications Medications (Trade) Dose Ordered Sig/Kandy PRN Reason Start Time Stop Time Status Last Admin Docusate Sodium (Colace) 100 mg DAILY 12/18/19 09:00 01/17/20 08:59 Famotidine (Pepcid) 20 mg DAILY 12/18/19 09:00 01/17/20 08:59 Insulin Glargine (Lantus) 20 unit HS 12/16/19 21:00 01/15/20 20:59 12/16/19 21:27 Labetalol HCl (Trandate) 20 mg Q4H PRN HYPERTENSION 12/17/19 16:30 01/16/20 16:29 12/17/19 16:26 Morphine Sulfate (Morphine Sulfate) 2 mg Q4H PRN PAIN 4 - 6 12/17/19 15:00 01/16/20 14:59 Throat Lozenges (Cepacol Sore Throat Lozenge) 1 each PRN PRN SORE THROAT 12/17/19 15:00 01/16/20 14:59 Tramadol HCl (Ultram) 50 mg Q6H PRN PAIN 1 - 3 12/17/19 15:00 01/16/20 14:59 Tramadol HCl (Ultram) 100 mg Q6H PRN PAIN 4 - 6 12/17/19 15:00 01/16/20 14:59 Vancomycin HCl 1600 mg/Sodium Chloride 300 ml @ 175 mls/hr Q12H 12/16/19 09:30 01/15/20 09:29 12/17/19 10:06 LEVEL 1 SEPSIS INFECTION CRITE: ABX Therapy, Recent Invasive Procedure LEVEL 2-SIRS (LIST ALL THAT AP: [id number] Cardiovascular Evidence: Not Assessed or None Hematologic Evidence: None/Not assessed Hepatic Evidence: None/Not assessed Metabolic Evidence: None/Not assessed Neurological Evidence: None/Not assessed Respiratory Evidence: None/Not assessed Renal Evidence: None/Not assessed O2 Sat by Pulse Oximetry: 99 Oxygen Flow Rate: 1.00 Assessment/Plan Assessment/Plan Assessment/Plan Plan Pending wound culture and blood culture. Continue IV abx POD #4 patient is doing very well and improved monitor pain OLIVIA SAEED NP Dec 21, 2019 09:28
[2019-12-21 12:30] VITALS: BP 130/78
--- NOTE | 2019-12-21 13:39 | DIET.OP ---
Nutrition Asmt/Malnutrit 2-17 Actual Date of Review: Dec 21, 2019 Nutritional Screening: Diagnosis Diagnosis: gangrene toe Pertinent Medical Hx/Surgical: osteomylitis, gangrene type 2 dm, Subjective Information: Admitted for gangrene toe, hgbA1C 10.9, called patient room but currently not available, no recent changes in weight Current Diet Order/Nutrition S: 1800 ADA Pertinent Meds Current Medications Medications (Trade) Dose Ordered Sig/Kandy PRN Reason Start Time Stop Time Status Last Admin Dextrose (Dextrose 50%-Water Syringe) 25 ml STAT PRN HYPOGLYCEMIA 12/18/19 12:30 01/17/20 12:29 Insulin Human Regular (Humulin R) Give 30 minutes before meal ACHS 12/18/19 17:30 01/17/20 17:29 12/21/19 08:43 Metformin HCl (Glucophage) 1,000 mg BID 12/18/19 12:30 01/17/20 12:29 12/21/19 09:00 Vancomycin HCl 1 gm/Sodium Chloride 250 ml @ 145.843 mls/hr Q8H 12/20/19 19:00 01/19/20 18:59 12/21/19 13:25 Pertinent Labs Laboratory Tests Test 12/19/19 17:37 12/19/19 19:54 12/20/19 05:08 12/20/19 05:51 Bedside Glucose 238 210 177 White Blood Count 14.2 10^3/uL Red Blood Count 5.25 10^6/uL Hemoglobin 15.2 g/dL Hematocrit 44.5 % Mean Corpuscular Volume 84.8 fL Mean Corpuscular Hemoglobin 29.0 pg Mean Corpuscular Hemoglobin Concent 34.2 g/dL Red Cell Distribution Width 12.8 % Platelet Count 277 10^3/uL Mean Platelet Volume 9.4 fL Sodium Level 137 mmol/L Potassium Level 4.0 mmol/L Chloride Level 101.0 mmol/L Carbon Dioxide Level 28.5 mmol/L Anion Gap 11.5 Blood Urea Nitrogen 10 mg/dL Creatinine 0.85 mg/dL Estimated GFR () 111.3 Est GFR (CKD-EPI)(Non-Afr Togolese) 91.9 BUN/Creatinine Ratio 11.0 Glucose Level 179 mg/dL Calcium Level 8.5 mg/dL Total Bilirubin 0.6 mg/dL Aspartate Amino Transf (AST/SGOT) 16 U/L Alanine Aminotransferase (ALT/SGPT) 22 U/L Alkaline Phosphatase 103 U/L Total Protein 6.6 g/dL Albumin 2.4 g/dL Globulin 4.2 Albumin/Globulin Ratio 0.571 Test 12/20/19 07:46 12/20/19 10:39 12/20/19 12:08 12/20/19 17:17 Bedside Glucose 199 239 236 Vancomycin Level Trough 14.5 ug/mL Test 12/20/19 20:57 12/21/19 05:38 12/21/19 08:15 12/21/19 10:58 Bedside Glucose 178 176 188 Vancomycin Level Trough 14.8 ug/mL Test 12/21/19 11:52 Bedside Glucose 249 Laboratory Tests 12/20/19 17:17: Bedside Glucose 236H 12/20/19 20:57: Bedside Glucose 178H 12/21/19 05:38: Bedside Glucose 176H 12/21/19 08:15: Bedside Glucose 188H 12/21/19 10:58: Vancomycin Level Trough 14.8H 12/21/19 11:52: Bedside Glucose 249H Height (Feet): 5 Height (Inches): 10 Current Weight: 236 Usual Weight: 235 Weight Status: Obese GI Symptoms: None Food Allergies: No Cultural/Ethnic/[employer] [place]: no pertinent Usual Diet at Home: Regular Skin Integrity/Comment: Yes (osteomylitis and gangrene on toe, went for surgery yesterday) Current %PO: Good(75-100%) BEE in Kcals: Use Current Weight Calories/Kcals/Kg: MSJ 1-1.4 adj for wt loss Kcals Calculated: 0468-0096 Protein: Adj WT of IBW Protein g/k.5-2 g/kg IBW Protein Calculated: 116-166 Fluid: ml: 9833-1297 ml fluid or 1 ml/kcal 30-40% kcals for carbs 105-217 g Nutritional Problem: Nutr. Problems Present Problems: Limited adherence to nutrition related recommendations Increased protein needs Etiology: excessive carbohydrate intake wound Signs/Symptoms: hgbA1C 10.9, unhealing wound, gangrene and osteomylitis. Recommendations by RD: Dietary education by RD, Protein supplementation RD Comments: Provide diabetes education Provide Lazaro BID to help with wound healing Expected Outcomes Goals: 1. Pt will be able to meet at least 75% of estimated protein needs next 5 days. 2. Pt will be available for education next 3 days. Discharge planning in progress with interdisciplinary team, will need Lazaro post discharge to help with wound healing, may benefit from outpatient DM education. Malnutrtion/Nutrition Risk Edu: JIMY Gomez Dec 21, 2019 13:39
[2019-12-21 15:38] VITALS: BP 135/69
[2019-12-21] MEDS ORDERED: CIPR500T86 PO (18:51)
[2019-12-21] MEDS ORDERED: AMPI500C2 PO (18:51)
[2019-12-21] MEDS ORDERED: METF10007 PO (18:51)
[2019-12-21] MEDS ORDERED: ASPI-667 PO (18:52)
--- NOTE | 2019-12-21 19:04 | PRM.DC ---
Discharge Summary Chief Complaint: Foot discoloration HPI and Diagnostic Evaluation Hx of Present Illness The patient is a 59-yo M with medical hx of DM2 and peripheral neuropathy who reportedly stepped on a nail 3 days ago, but did not realize it until about yesterday before coming to the ED, he noticed dark discoloration of his right great toe but denied any feeling of pain. He went to see his primary care physician in [place] yesterday, Dr. Vinnie De Jesus, who referred the patient to the [facility]. The patient denies any fever or chills. After patient was seen in the Emergency Room last night by Dr. Lopez CT scan Reported findings of septic arthritis , Osteomyelitis of the first IP joint and base of the first proximal phalanx with gas gangrene. Patient was given IV antibiotic broad- spectrum of the emergency department and was therefore plan for admission for further evaluation and management. WBC at the emergency department reported 14,000 with elevated blood sugar likely uncontrolled diabetes mellitus type 2. Dr. Johnson was consulted who agreed to come and see patient. Patient History: Patient reports no known family medical history. Primary Diagnosis: (1) Gas gangrene of foot Allergies: Coded Allergies: No Known Allergies (Unverified , 12/15/19) [place] [address] OPERATIVE REPORT PATIENT NAME: RAQUEL ANGUIANO MR#: [id number] : 1960 LOCATION: [place] ROOM#: 329 BED: A SEX: M AGE: 59 ADMIT/REGISTRATION DATE/TIME: cc: DATE OF SURGERY: 12/17/2019 PREOPERATIVE DIAGNOSIS: Gangrene of the right great toe. POSTOPERATIVE DIAGNOSIS: Gangrene of right great toe. OPERATIVE PROCEDURE: Amputation of the right great toe through the MTP joint. SURGEON: Albin Johnson MD ANESTHESIA: General. TOURNIQUET TIME: 21 minutes at 300 mmHg. DRAINS: None. BLOOD LOSS: 50 mL. INDICATIONS: The patient is a 59-year-old diabetic, who noticed that his great toe turned black about 2 days ago after he stepped on a nail. He was admitted to the [facility] on 12/15/2019. He was cleared for surgery and taken to the operating room today for amputation of the right great toe. The patient had stepped on a nail several days ago and began having swelling, redness and blackish discoloration of the great toe. He had total gangrenous changes of the great toe extending from the base of the proximal phalanx dorsally involving the entire toe to the volar aspect of the great toe at the MTP joint. DESCRIPTION OF PROCEDURE: The patient was placed on the operating table in the supine position. A general anesthetic was induced. The patient had the tourniquet placed around the right calf region. Right lower extremity was then sterilely prepped and draped. The patient then had the incision taken around the base of the proximal phalanx of the toe in a hockey stick fashion with the base of the incision medially. Incision was taken through the skin and the subcutaneous tissue, full-thickness down to the joint. Aerobic and anaerobic cultures were taken as well as a Gram stain. The patient then had the capsule opened at the MTP joint and the toe was removed. The wounds were then copiously irrigated. The sesamoids were resected as were the flexor and extensor tendons. The wound edges were clean and showed what appeared to be healthy tissue. The patient then had the articular cartilage about the distal end of the first metatarsal resected using a rongeur. The patient then had the distal end of the first metatarsal smoothed with a rasp. The wounds were then copiously irrigated and then closed with interrupted #2 Prolene suture in an interrupted manner. A compressive dressing was applied. He was sent to recovery in stable condition. The tourniquet was released and bleeding was controlled with cautery prior to the wound closure. Albin Johnson MD DR: LUX/shagufta JOB# [id number] <<>> DIAGNOSTIC IMAGING REPORT STATUS: SIGNED PATIENT NAME: RAQUEL ANGUIANO MR#: [id number] : 1960 SEX: M AGE: 59 LOCATION: ER PT STATUS: REG ER ROOM/BED: ORDERING PROVIDER: LORENZA LOPEZ DO REPORT#: [id number] SERVICE DATE/TIME:12/15/19 1725 ACCESSION NUMBER(S): [id number] PROCEDURE:CT LOWER EXTREMITY-RT W/O COMPARISON:None. INDICATIONS:osteomyelitis R great toe vs gangreen TECHNIQUE:Axial sections through the right foot and ankle were performed with sagittal and coronal reconstructions from source images. No contrast was administered. FINDINGS: BONES:Osseous erosive changes of the base of the 1st proximal phalanx compatible with acute osteomyelitis.. JOINTS:Background osteoarthritis of the metatarsophalangeal, interphalangeal, midfoot, and tibiotalar joints. Degenerative changes most pronounced about the talonavicular interval, calcaneal cuboid joint, and the 1st metatarsophalangeal joint. SOFT TISSUES:Significant soft tissue swelling and subcutaneous emphysema surrounding the 1st interphalangeal joint. OTHER:Negative. CONCLUSION:Findings suggestive of septic arthritis and osteomyelitis of the 1st interphalangeal joint and base of the 1st proximal phalanx respectively. Surrounding soft tissue gas compatible with gas gangrene. Dictated by: Matthieu Hinkle DO on 12/15/2019 at 06:48 PM Home Meds Active Scripts Aspirin (ASPIRIN) 81 Mg Tab.chew, 81 MG PO BID for 30 Days, #60 TAB.CHEW Prov:SAKSHI CHAVEZ DO 12/21/19 Ampicillin Trihydrate (AMPICILLIN TRIHYDRATE) 500 Mg Capsule, 500 MG PO Q6HR for 10 Days, #40 CAP 0 Refills Prov:SAKSHI CHAVEZ DO 12/21/19 Ciprofloxacin Hcl (CIPRO) 500 Mg Tablet, 500 MG PO BID for 10 Days, #20 TABLET 0 Refills Prov:SAKSHI CHAVEZ DO 12/21/19 Metformin Hcl (METFORMIN HCL) 1,000 Mg Tablet, 1 TAB PO BID, #60 TAB 0 Refills Prov:SAKSHI CHAVEZ DO 12/21/19 Scheduled Ampicillin Trihydrate (Ampicillin Trihydrate), 500 MG PO Q6HR Aspirin (Aspirin), 81 MG PO BID Ciprofloxacin Hcl (Cipro), 500 MG PO BID Metformin Hcl (Metformin Hcl), 1 TAB PO BID Consultations Dr. Johnson, orthopedic surgery. Procedures Laboratory Tests Test 12/15/19 18:11 12/15/19 19:52 12/16/19 05:00 12/16/19 10:54 White Blood Count 14.6 10^3/uL (4.5-11.0) 13.9 10^3/uL (4.5-11.0) Red Blood Count 5.31 10^6/uL (4.50-5.90) 5.20 10^6/uL (4.50-5.90) Hemoglobin 15.5 g/dL (13.9-16.3) 15.2 g/dL (13.9-16.3) Hematocrit 44.2 % (37.0-53.0) 43.7 % (37.0-53.0) Mean Corpuscular Volume 83.2 fL (78-100) 84.0 fL (78-100) Mean Corpuscular Hemoglobin 29.2 pg (26-34) 29.2 pg (26-34) Mean Corpuscular Hemoglobin Concent 35.1 g/dL (33-36.5) 34.8 g/dL (33-36.5) Red Cell Distribution Width 13.0 % (11.5-14.5) 13.1 % (11.5-14.5) Platelet Count 260 10^3/uL (150-400) 249 10^3/uL (150-400) Mean Platelet Volume 9.5 fL (7.8-11.0) 9.7 fL (7.8-11.0) Neutrophils (%) (Auto) 80.7 % (41.0-85.0) 77.5 % (41.0-85.0) Lymphocytes (%) (Auto) 10.9 % (24.0-44.0) 12.7 % (24.0-44.0) Monocytes (%) (Auto) 6.4 % (5.0-12.0) 7.1 % (5.0-12.0) Neutrophils # (Auto) 11.8 10^3/uL (1.8-7.7) 10.8 10^3/uL (1.8-7.7) Lymphocytes # (Auto) 1.60 10^3/uL1 (1.0-4.8) 1.76 10^3/uL1 (1.0-4.8) Monocytes # (Auto) 0.9 10^3/uL (0.3-0.8) 1.0 10^3/uL (0.3-0.8) Absolute Immature Granulocyte (auto 0.23 10^3 u/L (0-2) 0.24 10^3 u/L (0-2) Absolute Eosinophils (auto) 0.1 10^3/uL (0.0-0.2) 0.1 10^3/uL (0.0-0.2) Immature Granulocytes % 1.60 % (0.00-0.50) 1.70 % (0.00-0.50) Eosinophils % 0.3 % (0.0-5.0) 0.8 % (0.0-5.0) Basophils % 0.1 % (0.0-0.2) 0.2 % (0.0-0.2) Basophils # 0.0 10^3/uL (0.0-0.1) 0.0 10^3/uL (0.0-0.1) Sodium Level 136 mmol/L (132-145) 138 mmol/L (132-145) Potassium Level 4.1 mmol/L (3.6-5.2) 4.2 mmol/L (3.6-5.2) Chloride Level 101.0 mmol/L (96-109) 102.0 mmol/L (96-109) Carbon Dioxide Level 26.8 mmol/L (20.0-32) 27.3 mmol/L (20.0-32) Anion Gap 12.3 12.9 Blood Urea Nitrogen 18 mg/dL (7-18) 14 mg/dL (7-18) Creatinine 0.90 mg/dL (0.59-1.40) 0.89 mg/dL (0.59-1.40) Estimated GFR () 104.2 (>/=60) 105.5 (>/=60) Est GFR (CKD-EPI)(Non-Afr Thai) 86.1 (>/=60) 87.2 (>/=60) BUN/Creatinine Ratio 20.0 15.0 Glucose Level 332 mg/dL (70-110) 334 mg/dL (70-110) Calcium Level 9.1 mg/dL (8.4-10.5) 8.9 mg/dL (8.4-10.5) Total Bilirubin 0.5 mg/dL (0.2-1.0) 0.4 mg/dL (0.2-1.0) Aspartate Amino Transf (AST/SGOT) 13 U/L (0-35) 12 U/L (0-35) Alanine Aminotransferase (ALT/SGPT) 21 U/L (12-78) 19 U/L (12-78) Alkaline Phosphatase 91 U/L (50-136) 89 U/L (50-136) Total Protein 6.9 g/dL (6.4-8.2) 6.4 g/dL (6.4-8.2) Albumin 2.8 g/dL (3.4-5.0) 2.7 g/dL (3.4-5.0) Globulin 4.1 3.7 Albumin/Globulin Ratio 0.682 0.729 Bedside Glucose 301 (70 - 110) 322 (70 - 110) Hemoglobin A1c 10.9 % (0-5.7) Test 12/16/19 17:23 12/16/19 21:16 12/17/19 06:20 12/17/19 15:22 Bedside Glucose 318 (70 - 110) 325 (70 - 110) 287 (70 - 110) 236 (70 - 110) Test 12/17/19 16:16 12/17/19 20:25 12/17/19 20:41 12/18/19 05:05 Bedside Glucose 212 (70 - 110) 316 (70 - 110) White Blood Count 12.8 10^3/uL (4.5-11.0) 12.3 10^3/uL (4.5-11.0) Red Blood Count 5.14 10^6/uL (4.50-5.90) 5.09 10^6/uL (4.50-5.90) Hemoglobin 14.9 g/dL (13.9-16.3) 15.2 g/dL (13.9-16.3) Hematocrit 43.0 % (37.0-53.0) 43.0 % (37.0-53.0) Mean Corpuscular Volume 83.7 fL (78-100) 84.5 fL (78-100) Mean Corpuscular Hemoglobin 29.0 pg (26-34) 29.9 pg (26-34) Mean Corpuscular Hemoglobin Concent 34.7 g/dL (33-36.5) 35.3 g/dL (33-36.5) Red Cell Distribution Width 12.8 % (11.5-14.5) 12.9 % (11.5-14.5) Platelet Count 258 10^3/uL (150-400) 265 10^3/uL (150-400) Mean Platelet Volume 9.2 fL (7.8-11.0) 9.3 fL (7.8-11.0) Vancomycin Level Trough 8.7 ug/mL (5.00-10.0) Test 12/18/19 05:52 12/18/19 06:50 12/18/19 12:00 12/18/19 17:29 Bedside Glucose 268 (70 - 110) 276 (70 - 110) 202 (70 - 110) Sodium Level 135 mmol/L (132-145) Potassium Level 4.3 mmol/L (3.6-5.2) Chloride Level 101.0 mmol/L (96-109) Carbon Dioxide Level 28.6 mmol/L (20.0-32) Anion Gap 9.7 Blood Urea Nitrogen 10 mg/dL (7-18) Creatinine 0.86 mg/dL (0.59-1.40) Estimated GFR () 109.8 (>/=60) Est GFR (CKD-EPI)(Non-Afr Thai) 90.7 (>/=60) BUN/Creatinine Ratio 11.0 Glucose Level 291 mg/dL (70-110) Calcium Level 8.9 mg/dL (8.4-10.5) Total Bilirubin 0.6 mg/dL (0.2-1.0) Aspartate Amino Transf (AST/SGOT) 10 U/L (0-35) Alanine Aminotransferase (ALT/SGPT) 18 U/L (12-78) Alkaline Phosphatase 89 U/L (50-136) Total Protein 6.4 g/dL (6.4-8.2) Albumin 2.5 g/dL (3.4-5.0) Globulin 3.9 Albumin/Globulin Ratio 0.641 Test 12/18/19 21:20 12/19/19 07:48 12/19/19 08:05 12/19/19 11:52 Bedside Glucose 189 (70 - 110) 246 (70 - 110) 240 (70 - 110) White Blood Count 13.7 10^3/uL (4.5-11.0) Red Blood Count 5.59 10^6/uL (4.50-5.90) Hemoglobin 16.0 g/dL (13.9-16.3) Hematocrit 46.9 % (37.0-53.0) Mean Corpuscular Volume 83.9 fL (78-100) Mean Corpuscular Hemoglobin 28.6 pg (26-34) Mean Corpuscular Hemoglobin Concent 34.1 g/dL (33-36.5) Red Cell Distribution Width 12.9 % (11.5-14.5) Platelet Count 266 10^3/uL (150-400) Mean Platelet Volume 9.1 fL (7.8-11.0) Sodium Level 133 mmol/L (132-145) Potassium Level 4.2 mmol/L (3.6-5.2) Chloride Level 100.0 mmol/L (96-109) Carbon Dioxide Level 24.5 mmol/L (20.0-32) Glucose Level 251 mg/dL (70-110) Blood Urea Nitrogen 10 mg/dL (7-18) Creatinine 0.77 mg/dL (0.59-1.40) Calcium Level 8.3 mg/dL (8.4-10.5) Anion Gap 12.7 Estimated GFR () 124.7 (>/=60) Est GFR (CKD-EPI)(Non-Afr Thai) 103.1 (>/=60) BUN/Creatinine Ratio 12.0 Vancomycin Level Trough 8.9 ug/mL (5.00-10.0) Test 12/19/19 17:37 12/19/19 19:54 12/20/19 05:08 12/20/19 05:51 Bedside Glucose 238 (70 - 110) 210 (70 - 110) 177 (70 - 110) White Blood Count 14.2 10^3/uL (4.5-11.0) Red Blood Count 5.25 10^6/uL (4.50-5.90) Hemoglobin 15.2 g/dL (13.9-16.3) Hematocrit 44.5 % (37.0-53.0) Mean Corpuscular Volume 84.8 fL (78-100) Mean Corpuscular Hemoglobin 29.0 pg (26-34) Mean Corpuscular Hemoglobin Concent 34.2 g/dL (33-36.5) Red Cell Distribution Width 12.8 % (11.5-14.5) Platelet Count 277 10^3/uL (150-400) Mean Platelet Volume 9.4 fL (7.8-11.0) Sodium Level 137 mmol/L (132-145) Potassium Level 4.0 mmol/L (3.6-5.2) Chloride Level 101.0 mmol/L (96-109) Carbon Dioxide Level 28.5 mmol/L (20.0-32) Anion Gap 11.5 Blood Urea Nitrogen 10 mg/dL (7-18) Creatinine 0.85 mg/dL (0.59-1.40) Estimated GFR () 111.3 (>/=60) Est GFR (CKD-EPI)(Non-Afr Thai) 91.9 (>/=60) BUN/Creatinine Ratio 11.0 Glucose Level 179 mg/dL (70-110) Calcium Level 8.5 mg/dL (8.4-10.5) Total Bilirubin 0.6 mg/dL (0.2-1.0) Aspartate Amino Transf (AST/SGOT) 16 U/L (0-35) Alanine Aminotransferase (ALT/SGPT) 22 U/L (12-78) Alkaline Phosphatase 103 U/L (50-136) Total Protein 6.6 g/dL (6.4-8.2) Albumin 2.4 g/dL (3.4-5.0) Globulin 4.2 Albumin/Globulin Ratio 0.571 Test 12/20/19 07:46 12/20/19 10:39 12/20/19 12:08 12/20/19 17:17 Bedside Glucose 199 (70 - 110) 239 (70 - 110) 236 (70 - 110) Vancomycin Level Trough 14.5 ug/mL (5.00-10.0) Test 12/20/19 20:57 12/21/19 05:38 12/21/19 08:15 12/21/19 10:58 Bedside Glucose 178 (70 - 110) 176 (70 - 110) 188 (70 - 110) Vancomycin Level Trough 14.8 ug/mL (5.00-10.0) Test 12/21/19 11:52 12/21/19 17:29 Bedside Glucose 249 (70 - 110) 150 (70 - 110) Microbiology Date/Time Source Procedure Growth Status 12/17/19 14:30 Toe Right Big Gram Stain - Final Complete 12/17/19 14:30 Wound Culture - Final Klebsiella Oxytoca Enterococ Faecalis - (Group D) Complete Hospital Course Raquel Anguiano is a 59 y/o gentleman with hx of DM2 who presented with right foot discoloration after stepping on a nail. He reports he has had a recent tetanus shot. His exam was consistent with gas gangrene of the foot and CT was suggestive of osteomyelitis of R great toe. Dr. Johnson with orthopedic surgery was consulted who agreed with assessment of gangrene and patient underwent amputation of R great toe on 12/16 without complications. he did not meet sepsis criteria on admission but was treated with broad spectrum IV abx while here. His bcx were NG at time of discharge and he was fever free. His wound cultures revealed Klebsiella Oxytoca and Enterococ Faecalis group D--and he was sent home on cipro PO and ampicillin PO per sensitivity report to complete 14 day total antibiotic course. This plan was agreed upon by myself and the orthopedic surgery team. He was provided a script for his metformin and strongly encouraged to follow an ADA diet. Appts were set up with his PCP and with orthopedic surgery for close follow up this week. He was sent home on asa 81mg PO BID x 30 days for VTE ppx per Dr. Carrasco request. He will have help from his brother at home and all questions/concerns were addressed prior to discharge. Condition/Impression Stable condition at time of discharge. Exam on day of discharge: Stable, NAD, comfortable. VS stable. CV RRR Resp CTA, nonlabored Abd soft, NTND R foot dressing CDI without surrounding erythema or drainage, RLE pulses nml SAKSHI CHAVEZ DO Dec 21, 2019 19:04
== END 2019-12-21 20:25 | disposition home or self-care (01) | DRG 255 ==
LOC: ER 17:24 → MS 19:20
PROVIDERS: ADMIT Student in an Organized Health Care Education/Training Program; ATTEND Family Medicine
PROC: 0Y6P0Z0 Detachment at Right 1st Toe, Complete, Open Approach (ICD-10-PCS; principal; 2019-12-17 13:50)
DX: E11.52 Type 2 diabetes mellitus with diabetic peripheral angiopathy with gangrene (principal); A48.0 Gas gangrene; M86.8X7 Other osteomyelitis, ankle and foot; M00.871 Arthritis due to other bacteria, right ankle and foot; L03.115 Cellulitis of right lower limb; E11.42 Type 2 diabetes mellitus with diabetic polyneuropathy; R58 Hemorrhage, not elsewhere classified; E11.65 Type 2 diabetes mellitus with hyperglycemia; F17.210 Nicotine dependence, cigarettes, uncomplicated; W45.0XXA Nail entering through skin, initial encounter; Z79.84 Long term (current) use of oral hypoglycemic drugs; Y93.89 Activity, other specified; Y92.89 Other specified places as the place of occurrence of the external cause; Y99.8 Other external cause status
CPT/HCPCS: 36415; 73700; 80048; 80053; 80202; 82948; 83036; 85025; 85027; 87040; 87070; 87075; 87077; 87186; 97161; A4217; G0378; J0696; J1580; J1815; J3370; J3490; J7050; 97116-GP